=== PATIENT | male | born 1970 | race Caucasian/White ===

== ENCOUNTER 2016-09-30 15:55 | Inpatient (IN) | payer OTHER ==
--- NOTE | 2016-09-30 16:31 | ED ---
General Adult HPI - General Chief complaint: Recheck/Abnormal Lab/Rx Stated complaint: abnormal labs Time Seen by Provider: 09/30/16 16:00 Source: patient, RN notes reviewed Mode of arrival: ambulatory Limitations: no limitations - History of Present Illness Initial comments: This is a 45-year-old male who presents emergency department because he was told to come in because he had abnormal labs. Patient states she's never daily drinker and has been for at least 10 years. Patient's sister states he is very yellow looking. Patient states he is not having any symptoms he denies any chest pain difficulty breathing or shortness of breath. Patient denies any palpitations. Patient denies abdominal pain patient denies nausea vomiting or diarrhea. Patient states he does notice states more yellow in color than he normally is. Patient denies any headache patient denies numbness weakness. Patient denies lightheadedness dizziness or near syncopal episode. Patient states he does have a little bit of swelling in his legs but he has had that for quite a while. Patient states he has had at least 8 or 9 shots of liquor today. - Related Data Home Medications Medication Instructions Recorded Confirmed ALPRAZolam 1 mg PO BID PRN 10/03/14 12/05/15 Levothyroxine Sodium [Synthroid] 0.88 mcg PO DAILY 10/03/14 12/05/15 Lisinopril [Prinivil] 10 mg PO DAILY 10/03/14 12/05/15 Previous Rx's Medication Instructions Recorded Acetaminophen-Codeine 300-30mg 1 tab PO Q4H PRN #20 tablet 12/05/15 [Tylenol #3] Ibuprofen [Motrin] 600 mg PO Q8HR PRN #30 tab 12/05/15 Allergies Allergy/AdvReac Type Severity Reaction Status Date / Time No Known Allergies Allergy Verified 09/30/16 16:05 Review of Systems ROS Statement: Those systems with pertinent positive or pertinent negative responses have been documented in the HPI. ROS Other: All systems not noted in ROS Statement are negative. Past Medical History Past Medical History: Hypertension, Thyroid Disorder Additional Past Medical History / Comment(s): fatty liver disease History of Any Multi-Drug Resistant Organisms: None Reported Past Surgical History: No Surgical Hx Reported Past Psychological History: Anxiety, Panic Disorder Smoking Status: Never smoker Past Alcohol Use History: Daily, Heavy Past Drug Use History: Marijuana General Exam - General Exam Comments Initial Comments: GENERAL: Patient is well-developed and well-nourished. Patient is nontoxic and well- hydrated and is in mild distress. Patient is alert and oriented 3 but he seems very fatigued. ENT: Neck is soft and supple. No significant lymphadenopathy is noted. Oropharynx is clear. Moist mucous membranes. Neck has full range of motion without eliciting any pain. EYES: Patient has sclera icterus. Extraocular movements were intact and pupils were equal round and reactive to light. Eyelids were unremarkable. PULMONARY: Unlabored respirations. Good breath sounds bilaterally. No audible rales rhonchi or wheezing was noted. CARDIOVASCULAR: There is a regular rate and rhythm without any murmurs gallops or rubs. ABDOMEN: Soft and nontender with normal bowel sounds. No palpable organomegaly was noted. There is no palpable pulsatile mass. SKIN: Patient's skin is jaundice NEUROLOGIC: Patient is alert and oriented x3. Cranial nerves II through XII are grossly intact. Motor and sensory are also intact. Normal speech, volume and content. Symmetrical smile. MUSCULOSKELETAL: Normal extremities with adequate strength and full range of motion. Patient has 1+ edema bilaterally LYMPHATICS: No significant lymphadenopathy is noted PSYCHIATRIC: Normal psychiatric evaluation. Normal interpersonal interactions appears functionally intact in deals appropriately with others. No signs of depression. No signs of anxiety. Limitations: no limitations Course Vital Signs 09/30/16 16:00 Temperature 97.8 F Pulse Rate 99 Respiratory 20 Rate Blood Pressure 115/57 O2 Sat by Pulse 98 Oximetry Medical Decision Making - Medical Decision Making EKG shows normal sinus rhythm at 96 bpm AR interval 154 QRS is 112 QT interval 304 QTC is 485. Patient's EKG shows no ST segment elevation or depression or T- wave abdomen is noted - Lab Data Result diagrams: 09/30/16 16:43 09/30/16 16:43 Lab Results 09/30/16 09/30/16 09/30/16 Range/Units 16:43 16:43 16:43 WBC 10.2 (3.8-10.6) k/uL RBC 2.44 L (4.30-5.90) m/uL Hgb 10.0 L (13.0-17.5) gm/dL Hct 29.2 L (39.0-53.0) % MCV 119.4 H (80.0-100.0) fL MCH 41.0 H (25.0-35.0) pg MCHC 34.3 (31.0-37.0) g/dL RDW 13.0 (11.5-15.5) % Plt Count 225 (150-450) k/uL Neutrophils % 81 % Lymphocytes % 8 % Monocytes % 6 % Eosinophils % 2 % Basophils % 1 % Neutrophils # 8.2 H (1.3-7.7) k/uL Lymphocytes # 0.9 L (1.0-4.8) k/uL Monocytes # 0.6 (0-1.0) k/uL Eosinophils # 0.2 (0-0.7) k/uL Basophils # 0.1 (0-0.2) k/uL Macrocytosis Marked Sodium 125 L (137-145) mmol/L Potassium 4.3 (3.5-5.1) mmol/L Chloride 91 L (98-107) mmol/L Carbon Dioxide 20 L (22-30) mmol/L Anion Gap 14 mmol/L BUN 9 (9-20) mg/dL Creatinine 0.69 (0.66-1.25) mg/dL Est GFR (MDRD) Af Amer >60 (>60 ml/min/1.73 sqM) Est GFR (MDRD) Non-Af >60 (>60 ml/min/1.73 sqM) Glucose 92 (74-99) mg/dL Calcium 8.6 (8.4-10.2) mg/dL Magnesium 1.9 (1.6-2.3) mg/dL Total Bilirubin 19.4 H* (0.2-1.3) mg/dL AST 262 H (17-59) U/L ALT 94 H (21-72) U/L Alkaline Phosphatase 302 H (38-126) U/L Ammonia 15 (<30) umol/L Total Protein 8.0 (6.3-8.2) g/dL Albumin 3.1 L (3.5-5.0) g/dL Serum Alcohol 148 mg/dL Disposition Clinical Impression: Alcoholic hepatitis, Alcohol intoxication, Hyponatremia Disposition: ADMITTED IP TO THIS [facility] Time of Disposition: 17:54
[2016-09-30 16:59] LABS: Basophils # (A) 0.1 k/uL (0-0.2); Basophils % (A) 1 %; CH 39.7; CHCM 33.4; Eosinophils # (A) 0.2 k/uL (0-0.7); Eosinophils % (A) 2 %; HCT 29.2 % (39.0-53.0); HDW 1.73; Luc # (Auto) 0.19; Luc % (Auto) 2; Lymphocytes # (A) 0.9 k/uL (1.0-4.8); Lymphocytes % (A) 8 %; MCHC 34.3 g/dL (31.0-37.0); MCV 119.4 fL (80.0-100.0); Macrocytosis Marked; Mean Platelet Volume 7.5; Monocytes # (A) 0.6 k/uL (0-1.0); Monocytes % (A) 6 %; Neutrophils # (A) 8.2 k/uL (1.3-7.7); Neutrophils % (A) 81 %; RBC 2.44 m/uL (4.30-5.90); WBC 10.2 k/uL (3.8-10.6); WBC (Perox) 10.48
[2016-09-30 17:04] LABS: ALT 94 U/L (21-72); AST 262 U/L (17-59); Alkaline Phosphatase 302 U/L (38-126); Anion Gap 14 mmol/L; Blood Urea Nitrogen 9 mg/dL (9-20); Calcium 8.6 mg/dL (8.4-10.2); Carbon Dioxide 20 mmol/L (22-30); Chloride 91 mmol/L (98-107); Glucose 92 mg/dL (74-99); Magnesium 1.9 mg/dL (1.6-2.3); Non-African American GFR(MDRD) >60 (>60 ml/min/1.73 sqM); Potassium 4.3 mmol/L (3.5-5.1); Sodium 125 mmol/L (137-145)
[2016-09-30 17:11] LABS: Total Bilirubin 19.4 mg/dL (0.2-1.3)
[2016-09-30 17:12] LABS: Alcohol 148 mg/dL
[2016-09-30] MEDS ORDERED: SODIUM CHLORIDE 0.9% 1,000 ML IV ONE (17:54)
[2016-09-30] MEDS ORDERED: LORazepam 2 MG/ML SYRINGE IV PRN ×2 (17:56)
[2016-09-30] MEDS ORDERED: THIAMINE 100 MG/ML 2 ML VIAL IM STA (17:56)
[2016-09-30 18:42] LABS: Appearance,Urine Clear (Clear); Bilirubin,Urine 4+ (Negative); Glucose,Urine (UA) Negative (Negative); Ketones,Urine Negative (Negative); Leukocyte Esterase,Urine Negative (Negative); Nitrite,Urine Negative (Negative); Protein,Urine Negative (Negative); Specific Gravity,Urine 1.009 (1.001-1.035); UA Billing (MACRO vs. MICRO) CHEM
[2016-09-30] MEDS: THIAMINE 100 MG TAB PO SCH (20:29)
[2016-09-30 22:29] VITALS: BMI 34.4
[2016-10-01] MEDS: LORazepam 2 MG/ML SYRINGE IV PRN ×2 (09:50→16:53)
[2016-10-01] MEDS: THIAMINE 100 MG TAB PO SCH ×2 (12:12→16:53)
[2016-10-01] MEDS: SODIUM CHLORIDE 0.9% 1,000 ML IV SCH (12:13)
[2016-10-01] MEDS ORDERED: LEVOTHYROXINE 88 MCG TAB PO SCH (12:15)
[2016-10-01 13:38] LABS: INR 1.4 (<1.1); Prothrombin Time 13.6 sec (9.0-12.0)
[2016-10-01 14:04] LABS: Hepatitis B Surface Ag Index 0.08
[2016-10-01 14:09] LABS: Hepatitis B Core IgM Index 0.09
[2016-10-01 14:21] LABS: Hepatitis C Virus IgG Index 0.07
[2016-10-01 14:26] LABS: Hepatitis C Virus IgG Ab Negative (Negative)
--- NOTE | 2016-10-01 14:28 | US ---
EXAMINATION TYPE: US abdomen limited DATE OF EXAM: 10/01/2016 1:46 PM COMPARISON: 04/01/2014 CLINICAL HISTORY: Evaluate for ascites, alcoholic hepatitis, etoh abuse. TECHNOLOGIST IMPRESSION: Ascites seen in all four quadrants of the abdomen IMPRESSION: The exam is limited and demonstrates moderate amount of ascites fluid in all 4 quadrants of the abdomen.
[2016-10-01] MEDS: LEVOTHYROXINE 88 MCG TAB PO SCH (15:10)
[2016-10-01] MEDS: LISINOPRIL 20 MG TAB PO SCH (15:10)
[2016-10-01] MEDS ORDERED: HYDROmorphone 1 MG/ML 1 ML SYRINGE IVP PRN (15:57)
--- NOTE | 2016-10-01 16:50 | CONS ---
DATE OF CONSULTATION: 10/01/2016 REQUESTING PHYSICIAN: Dr. Thompson. REASON FOR CONSULTATION: Abdominal pain, abdominal distention and abnormal labs. The patient has history of alcohol use for the last 15 to 20 years' duration. Apparently he was noticed that his skin was turning yellow by his sister. He went to see Dr. Thompson on an outpatient basis, had some labs done and was told LFTs were abnormal and was advised to go to the emergency room. The patient has some abdominal distention and some vague abdominal discomfort. He denies any nausea, vomiting. Denies any rectal bleeding or melena. He denies any recent weight loss. His past medical history is significant for hypertension, hypothyroidism, and heavy alcohol abuse. PAST SURGICAL HISTORY: None. MEDICATIONS AT HOME: 1. Tylenol #3. 2. Motrin. 3. Prinivil. 4. Xanax. 5. Synthroid. ALLERGIES: None. SOCIAL HISTORY: Chronic smoker and heavy alcohol use for more than 20 years. FAMILY HISTORY: Unremarkable. REVIEW OF SYSTEMS: CARDIOPULMONARY: No chest pain or shortness of breath. GENITOURINARY: No dysuria or hematuria. MUSCULOSKELETAL: Unremarkable. SKIN: Unremarkable. ENDOCRINE: Unremarkable. PSYCHIATRIC: Unremarkable. NEUROLOGY: Unremarkable. ENT/VISION: Unremarkable. CONSTITUTIONAL: No recent weight loss. No fevers, chills or night sweats. On physical examination, he appears comfortable in no apparent distress. Vital signs are stable. Blood pressure is 103/59, pulse rate 97, temperature 98.2. HEENT: Unremarkable. Conjunctivae pink. Sclerae anicteric. Oral cavity, no lesions. NECK: No JVD or lymph node enlargement. CHEST: Clear to auscultation. HEART: Regular rate and rhythm. ABDOMEN: Soft. The liver was ballotable. There was some ascites noted in the abdomen. EXTREMITIES: 1+ pedal edema. SKIN: No rashes. NEURO: He is alert and oriented x3. No focal deficits. Labs from today: WBC 10.2, hemoglobin 10, platelets 225, T-bili is 19.4, AST 262 and ALT is 94, alk phos 302, basic metabolic panel is within normal limits. BUN and creatinine are within normal limits. Serum alcohol 148. IMPRESSION: 1. This is a patient with a history of heavy alcohol abuse of more than 20 years presents to the hospital with abdominal distention, yellowish discoloration of skin and labs show a significant elevation of total bilirubin of 19.4 and biochemical parameters consistent with acute alcoholic hepatitis superimposed on possible underlying alcoholic cirrhosis of the liver. 2. Mild ascites. RECOMMENDATIONS: 1. We will obtain ultrasound of the abdomen to see if he had significant ascites. 2. Obtain hepatitis viral profile. 3. After a lengthy discussion with the patient regarding abstinence from alcohol. 4. Continue with symptomatic and supportive care. 5. Low salt diet and will follow the patient closely during his hospital stay. Thank you for this consultation.
[2016-10-01] MEDS: PANTOPRAZOLE 40 MG/10 ML VIAL IVP SCH (16:52)
--- NOTE | 2016-10-01 19:03 | HP ---
DATE OF ADMISSION: CHIEF COMPLAINT: Abdominal distention as well as abnormal labs. HISTORY OF PRESENT ILLNESS: This 45-year-old gentleman with a past medical history of multiple medical problems including hypertension, hypothyroidism, history of fatty liver disease, anxiety, panic disorder, history of significant alcohol intake and history of THC being followed by Dr. Thompson in the outpatient setting was not feeling well for the past several days. The patient was drinking for the last 10 years at least. The patient was getting progressively yellow and Dr. Thompson recommended lab evaluation. Because of abnormal labs, the patient came to [facility] Emergency Room and was admitted for further evaluation and treatment. There is no history of any fever, rigors. No history of headache, loss of consciousness. The patient had some abdominal distention. The labs on admission showed hemoglobin 10, MCV 119, sodium is 125, bilirubin is elevated at 19.8 indicating acute alcoholic hepatitis, INR 1.4. AST and ALT were also elevated and patient admitted for further evaluation and treatment. Hepatitis panel was negative. Serum alcohol was 148 on admission. PAST MEDICAL HISTORY: History of significant EtOH. History of hypothyroidism, history of fatty liver disease, anxiety, panic disorder. Medications prior to admission include: 1. Synthroid 88 mcg p.o. daily. 2. Zestril 20 mg. 3. Xanax 1 mg b.i.d. p.r.n. ALLERGIES are none. FAMILY HISTORY: History of cancer, CVA, TIA, kidney cancer in the family. SOCIAL HISTORY: History of alcohol, THC. No history of smoking. REVIEW OF SYSTEMS: ENT: No diminished hearing or vision. CARDIOVASCULAR: No angina or palpitations. RESPIRATORY: No cough or hemoptysis. GI: No nausea. : No dysuria. NERVOUS SYSTEM: No numbness or weakness. ALLERGY/IMMUNOLOGY: No asthma or hayfever. MUSCULOSKELETAL: As mentioned earlier. HEMATOLOGY/ONCOLOGY: No history of anemia. ENDOCRINE: Hypothyroidism. CONSTITUTIONAL: As mentioned earlier. DERMATOLOGY: Negative. RHEUMATOLOGY: Negative. PSYCHIATRY: As mentioned earlier. PHYSICAL EXAMINATION: Alert and oriented x3. Pulse is 105, blood pressure 125/89, respirations 18, temperature 98 degrees, pulse 100% on room air. HEENT: Conjunctivae icteric. Oral mucosa icteric. NECK: No jugular venous distention. No carotid bruit. No lymph node enlargement. CARDIOVASCULAR: S1 and S2, muffled. No S3, no S4. RESPIRATORY: Breath sounds diminished at the bases. A few scattered rhonchi and crackles. ABDOMEN: Soft, mild diffuse distention. Flanks are dull. No mass palpable. No hepatosplenomegaly. Bowel sounds present. No guarding, no rigidity. LEGS: Minimal bilateral leg edema. NERVOUS SYSTEM: Higher function as mentioned. Moves all four limbs. No focal motor deficits. LYMPHATIC: No lymphadenopathy in the neck, axillae or groin. SKIN: Icteric. JOINTS: No active deforming arthropathy. LABS: WBC 10, hemoglobin 10, MCV ntd, sodium 125, LFTs are noted, albumin of 3.1, INR is 1.4. Abdominal ultrasound was done, which showed moderate amount of ascites. ASSESSMENT: 1. Acute alcoholic hepatitis with hyperbilirubinemia. 2. Ascites, possibly secondary to chronic liver disease. 3. Anemia, macrocytic, secondary to alcohol. 4. Mild coagulopathy secondary to chronic liver distress. 5. Hyponatremia secondary to alcohol. 6. Increased AST, ALT secondary to alcoholic hepatitis. 7. Increased alkaline phosphatase. 8. Hypoalbuminemia with mild to moderate protein calorie malnutrition. 9. Hypertension. 10. Hypothyroidism. 11. History of fatty liver. 12. History of anxiety, panic disorder. 13. History of tetrahydrocannabinol. 14. FULL CODE. RECOMMENDATIONS AND DISCUSSION: In this 45-year-old gentleman presented with multiple complex medical issues. Will monitor the patient closely. Continue the current medications. Continue symptomatic treatment. Avoid hepatotoxic medications. Ativan p.r.n. for alcohol withdrawal. Gastroenterology consultation. Proton pump inhibitors. Guarded prognosis. Repeat labs. Guarded prognosis because of multiple complex medical issues. Further recommendations to follow. Copy of dictation forwarded to Dr. Thompson who is the primary physician. I would also recommend a therapeutic ascitic tap also with radiology. JENNIFERD
[2016-10-01] MEDS: MELATONIN 3 MG TABLET PO SCH (22:36)
[2016-10-02] MEDS: LORazepam 2 MG/ML SYRINGE IV PRN (00:44)
[2016-10-02] MEDS: LEVOTHYROXINE 88 MCG TAB PO SCH (06:37)
[2016-10-02 08:34] LABS: Basophils # (A) 0.1 k/uL (0-0.2); Basophils % (A) 1 %; CH 39.7; CHCM 32.7; Eosinophils # (A) 0.2 k/uL (0-0.7); Eosinophils % (A) 2 %; HCT 29.2 % (39.0-53.0); HDW 1.71; HGB 9.9 gm/dL (13.0-17.5); Luc # (Auto) 0.17; Luc % (Auto) 2; Lymphocytes # (A) 0.6 k/uL (1.0-4.8); Lymphocytes % (A) 7 %; MCH 41.5 pg (25.0-35.0); Macrocytosis Marked; Mean Platelet Volume 7.2; Monocytes # (A) 0.5 k/uL (0-1.0); Monocytes % (A) 6 %; Neutrophils # (A) 7.5 k/uL (1.3-7.7); Neutrophils % (A) 83 %; RDW 13.1 % (11.5-15.5); WBC (Perox) 9.18
[2016-10-02 08:55] LABS: ALT 91 U/L (21-72); AST 237 U/L (17-59); Alkaline Phosphatase 285 U/L (38-126); Amylase 80 U/L (30-110); Anion Gap 11 mmol/L; Blood Urea Nitrogen 8 mg/dL (9-20); Calcium 8.9 mg/dL (8.4-10.2); Carbon Dioxide 20 mmol/L (22-30); Chloride 99 mmol/L (98-107); Glucose 98 mg/dL (74-99); Non-African American GFR(MDRD) >60 (>60 ml/min/1.73 sqM); Sodium 130 mmol/L (137-145); Total Protein 7.8 g/dL (6.3-8.2)
[2016-10-02] MEDS: LISINOPRIL 20 MG TAB PO SCH (08:58)
[2016-10-02] MEDS: PANTOPRAZOLE 40 MG/10 ML VIAL IVP SCH (08:58)
[2016-10-02] MEDS: ALPRAZolam 0.5 MG TAB PO PRN ×2 (08:58→22:24)
[2016-10-02 09:05] LABS: Total Bilirubin 21.3 mg/dL (0.2-1.3)
[2016-10-02 11:10] LABS: Manual Review Performed; Toxic Granulation Present
[2016-10-02] MEDS: FUROSEMIDE 40 MG TAB PO SCH (13:41)
[2016-10-02] MEDS: SPIRONOLACTONE 25 MG TAB PO SCH (13:41)
[2016-10-02] MEDS: THIAMINE 100 MG TAB PO SCH ×2 (13:42→17:33)
[2016-10-02] MEDS: FOLIC ACID 1 MG TAB PO SCH (13:42)
[2016-10-02] MEDS: MULTIVITAMINS, THERA 1 EACH TAB PO SCH (13:42)
[2016-10-02] MEDS: SODIUM CHLORIDE 0.9% 1,000 ML IV SCH (13:43)
--- NOTE | 2016-10-02 19:26 | P.PN ---
Subjective Date of service 10/02/2016 Progress note being dictated for Dr. Rodriguez Interval history: This is a 45-year-old gentleman admitted with acute alcoholic hepatitis, ascites and multiple other medical issues in a patient with extensive history of heavy ongoing daily alcohol abuse. Maintained onCIWA protocol. Awaiting paracentesis .Lipase 1468, LFTs trending down, total bili 21.3. Hepatitis panel negative. Platelets 242, hemoglobin 9.9. 4+ bilirubin in urine. Afebrile with normal WBC. Mild tachycardia. Denies chest pain, palpitations or increasing shortness of breath. Complains of diffuse abdominal discomfort. No nausea, no vomiting. Objective - Vital Signs Vital signs: Vital Signs Temp 98.1 F 10/02/16 07:00 Pulse 94 10/02/16 07:00 Resp 22 10/02/16 07:00 BP 116/55 10/02/16 07:00 Pulse Ox 100 10/02/16 07:00 Intake & Output 10/01/16 10/02/16 10/02/16 18:59 06:59 18:59 Intake Total 240 120 Balance 240 120 Weight 128.367 kg Intake: IV 240 Sodium Chloride 0.9% 1, 240 000 ml @ 20 mls/hr IV . Q24H [facility] Rx#:[id number] Oral 120 Other: Voiding Method Toilet Toilet # Voids 6 3 - Exam PHYSICAL EXAM: VITAL SIGNS: As above GENERAL: Sitting up in bed, a & O 3, no acute distress HEENT: [Pupils equal conjunctiva icterus] NECK: [Supple, no JVD] RESPIRATORY EFFORT:[Normal] LUNGS: [Bilateral bases diminished with scattered rhonchi and crackles] CARDIOVASCULAR[regular S1 and S2, no S3, no S4, tachycardic, positive edema GI: [Abdomen soft, distended, positive ascites, dull flanks, mild diffuse tenderness, positive bowel sounds. No guarding, no rigidity] PSYCH: [Alert and oriented -3, mood and affect normal.] SKIN: [Jaundiced] NEURO: No focal deficits, moves all 4 extremities - Labs CBC & Chem 7: 10/02/16 08:12 10/02/16 08:12 Labs: Abnormal Lab Results - Last 24 Hours (Table) 10/01/16 10/02/16 10/02/16 Range/Units 12:57 08:12 08:12 RBC 2.40 L (4.30-5.90) m/uL Hgb 9.9 L (13.0-17.5) gm/dL Hct 29.2 L (39.0-53.0) % MCV 122.0 H (80.0-100.0) fL MCH 41.5 H (25.0-35.0) pg Lymphocytes # 0.6 L (1.0-4.8) k/uL PT 13.6 H (9.0-12.0) sec Sodium 130 L (137-145) mmol/L Carbon Dioxide 20 L (22-30) mmol/L BUN 8 L (9-20) mg/dL Creatinine 0.60 L (0.66-1.25) mg/dL Total Bilirubin 21.3 H* (0.2-1.3) mg/dL AST 237 H (17-59) U/L ALT 91 H (21-72) U/L Alkaline Phosphatase 285 H (38-126) U/L Albumin 3.0 L (3.5-5.0) g/dL Lipase 1468 H (23-300) U/L Assessment and Plan Plan: 1. Acute alcoholic hepatitis with hyperbilirubinemia. 2. Moderate Ascites possibly secondary to chronic liver disease. 3. Anemia, macrocytic secondary to alcohol. 4. Mild coagulopathy secondary to chronic liver disease. 5. Hyponatremia secondary to alcohol. 6. Elevated LFTs secondary to alcoholic hepatitis. 7. Increased alk phosphatase. 8. Hypoalbuminemia with mild to moderate protein calorie malnutrition 9. Hypertension 10. Hypothyroidism 11. History of fatty liver 12. Anxiety, panic disorder, history of 13. History of THC 14. Ongoing daily alcohol abuse. Plan: Continue on current medication regime, Aldactone, Lasix monitoring and symptomatic treatment. Daily PT/INR. Maintain CIWA protocol and low salt diet. GI prophylaxis in place with PPI. Scheduled for paracentesis tomorrow. Increase ambulation as tolerated. Alcohol cessation readdressed. DF around 29 in regards to corticosteroid therapy for alcoholic hepatitis-defer to GI. Further recommendations to follow. Prognosis guarded The impression and plan of care has been dictated as directed. : I performed a H&P examination of this patient and discussed the same with the dictator. I agree with the dictator's note. Any additional findings/opinions/ etc. will be noted.
--- NOTE | 2016-10-02 19:28 | PN ---
DATE OF SERVICE: 10/02/2016 Patient is a 45-year-old pleasant white male admitted to the hospital with jaundice, abdominal distention for the last 2 weeks' duration. He denies any abdominal pain. He reports no nausea or vomiting. He did have an ultrasound of the abdomen done yesterday that showed evidence of moderate ascites. On physical examination, he appears comfortable in no apparent distress. Vitals as are stable. Blood pressure is 136/77, pulse 105, temperature 97, ( ). HEENT: Examination unremarkable. Conjunctivae pink. Sclerae anicteric. Oral cavity, no lesions. NECK: No JVD or lymph node enlargement. Chest was clear to auscultation. HEART: Regular rate and rhythm. ABDOMEN: Soft. Bowel sounds are positive. It was distended. EXTREMITIES: 1+ pedal edema. SKIN: No rashes. NEURO: Alert and oriented x3 and no focal deficits. Labs done from today showed slightly elevated lipase at 1468. T-bili is 21.3, AST 277, ALT is 91 and alkaline phosphatase 285. WBC 9, hemoglobin 9.9, platelets are 242, ultrasound showed moderate ascites. IMPRESSION: 1. Alcoholic cirrhosis with acute alcoholic hepatitis. 2. Ascites related to cirrhosis and portal hypertension. 3. Macrocytic anemia related to heavy alcohol abuse. 4. History of heavy alcohol abuse. RECOMMENDATIONS: 1. Will start him on Lasix 40 mg daily and Aldactone 100 mg daily. 2. Low-salt diet. 3. I had a lengthy discussion with the patient regarding abstinence from alcohol. 4. Await hepatitis serologies and will follow the patient closely during his hospital stay. Thank you for this consultation.
[2016-10-02] MEDS: MELATONIN 3 MG TABLET PO SCH (20:34)
[2016-10-02] MEDS: DOCUSATE 100 MG CAP PO SCH (20:35)
[2016-10-03] MEDS: LEVOTHYROXINE 88 MCG TAB PO SCH (06:37)
[2016-10-03] MEDS: DOCUSATE 100 MG CAP PO SCH ×3 (08:05→20:37)
[2016-10-03] MEDS: PANTOPRAZOLE 40 MG TABLET PO SCH (08:05)
[2016-10-03] MEDS: FUROSEMIDE 40 MG TAB PO SCH (08:06)
[2016-10-03] MEDS: SPIRONOLACTONE 25 MG TAB PO SCH (08:06)
[2016-10-03] MEDS: LISINOPRIL 20 MG TAB PO SCH (08:06)
[2016-10-03 09:29] LABS: INR 1.5 (<1.1)
[2016-10-03 09:32] LABS: Basophils # (A) 0.1 k/uL (0-0.2); Basophils % (A) 1 %; CH 39.2; CHCM 31.8; Eosinophils # (A) 0.2 k/uL (0-0.7); Eosinophils % (A) 2 %; HCT 30.5 % (39.0-53.0); HDW 1.73; Luc # (Auto) 0.18; Luc % (Auto) 2; Lymphocytes # (A) 0.9 k/uL (1.0-4.8); Lymphocytes % (A) 9 %; MCH 40.6 pg (25.0-35.0); MCHC 32.8 g/dL (31.0-37.0); MCV 123.8 fL (80.0-100.0); Macrocytosis Marked; Mean Platelet Volume 7.5; Monocytes # (A) 0.5 k/uL (0-1.0); Monocytes % (A) 5 %; Neutrophils # (A) 8.1 k/uL (1.3-7.7); Neutrophils % (A) 81 %; RBC 2.47 m/uL (4.30-5.90); RDW 13.2 % (11.5-15.5); WBC (Perox) 10.28
[2016-10-03 09:50] LABS: ALT 93 U/L (21-72); AST 224 U/L (17-59); Alkaline Phosphatase 280 U/L (38-126); Anion Gap 14 mmol/L; Blood Urea Nitrogen 9 mg/dL (9-20); Calcium 8.9 mg/dL (8.4-10.2); Carbon Dioxide 23 mmol/L (22-30); Chloride 98 mmol/L (98-107); Glucose 96 mg/dL (74-99); Non-African American GFR(MDRD) >60 (>60 ml/min/1.73 sqM); Potassium 3.9 mmol/L (3.5-5.1); Sodium 135 mmol/L (137-145); Total Protein 8.3 g/dL (6.3-8.2)
--- NOTE | 2016-10-03 10:00 | PN ---
DATE OF SERVICE: 10/02/2016 This 45-year-old gentleman was admitted with significant alcoholic hepatitis has been closely monitored. The patient's is less than 32 at this time. Patient also had PAST MEDICAL HISTORY: Reviewed. Seen and evaluated the patient along with the nurse practitioner. Please refer to the nurse practitioner notes and impression documented for further information. Otherwise current medications are: 1. Xanax 1 mg b.i.d. p.r.n. 2. Colace 100 mg daily. 3. Folic acid. 4. Lasix. 5. Dilaudid. 6. Synthroid. 7. Zestril. 8. Ativan. 9. Melatonin. 10. Multivitamins. 11. Protonix. 12. Aldactone. 13. Vitamin B1. REVIEW OF SYSTEMS: CARDIOVASCULAR: No angina. RESPIRATORY: As mentioned earlier. GI: As mentioned earlier. : No dysuria. NERVOUS SYSTEM: ntd. RECOMMENDATIONS AND DISCUSSION: I recommend to continue the current medications, continue monitoring and symptomatic treatment. Otherwise, closely follow with Dr. Santamaria as mentioned earlier. No p.o. steroids at this time. Guarded prognosis. Further recommendations to follow. MTDD
[2016-10-03 10:03] LABS: Total Bilirubin 20.8 mg/dL (0.2-1.3)
[2016-10-03 11:50] LABS: Manual Review Performed
[2016-10-03] MEDS: THIAMINE 100 MG TAB PO SCH ×2 (12:01→16:42)
[2016-10-03] MEDS: FOLIC ACID 1 MG TAB PO SCH (12:02)
[2016-10-03] MEDS: SODIUM CHLORIDE 0.9% 1,000 ML IV SCH (12:02)
[2016-10-03] MEDS: MULTIVITAMINS, THERA 1 EACH TAB PO SCH (12:02)
--- NOTE | 2016-10-03 12:58 | US ---
EXAMINATION TYPE: US paracentesis abd w/image DATE OF EXAM: 10/03/2016 11:08 AM CLINICAL HISTORY: Ascites The procedure was discussed with the patient. The risks, complications, benefits, and alternatives we re discussed and any questions were answered. Informed consent was obtained. The patient was placed s upine on the ultrasound table and prepped and draped in the usual sterile fashion. All elements of maximal barrier technique were utilized. Under ultrasound guidance, access into the right lower quadrant was obtained, via the paracentesis catheter system and direct ultrasound guidanc e. Approximately 2.6 liters of straw-colored fluid was removed. The patient was stable throughout the pr ocedure and remained stable upon discharge from Department of Radiology. IMPRESSION: Successful therapeutic paracentesis under ultrasound guidance.
--- NOTE | 2016-10-03 13:58 | P.PN ---
Subjective Principal diagnosis: Alcohol hepatitis pancreatitis 45-year-old male admitted with acute alcohol hepatitis pancreatitis ascites status post paracentesis; 2.6 L removal. Total bilirubin 20.8. Repeat pancreatic enzymes not obtained today. Feels better. Afebrile. Hepatitis panel negative. Objective - Vital Signs Vital signs: Vital Signs Temp 99.3 F 10/03/16 10:16 Pulse 100 10/03/16 11:05 Resp 20 10/03/16 11:05 BP 120/60 10/03/16 11:05 Pulse Ox 99 10/03/16 11:05 Intake & Output 10/02/16 10/03/16 10/03/16 18:59 06:59 18:59 Intake Total 600 Output Total 250 Balance 600 -250 Weight 128.367 kg Intake: Oral 600 Output: Urine 250 Other: Voiding Method Toilet # Voids 1 1 # Bowel Movements 0 0 - Exam General appearance: The patient is alert, oriented, in no acute distress. Jaundice. HET: Head is normocephalic and atraumatic. Pupils are equal and reactive. Sclerae icterus. Oropharynx is clear without lesions. Neck: Supple without lymphadenopathy. Trachea midline. Heart: S1 S2. Regular rate and rhythm. Lungs: No crackles or wheezes are heard. Abdomen: Soft, obese with protuberant abdomen, with bowel sounds. No peritoneal signs. No palpable organomegaly or masses. Extremities: Normal skin color and turgor. No cyanosis, rash, ulceration, clubbing, or edema. Radial and pedal pulses are 2/4 bilaterally. Neurological: No focal deficits. Strength and sensation are grossly intact. - Labs CBC & Chem 7: 10/03/16 08:34 10/03/16 08:34 Labs: Abnormal Lab Results - Last 24 Hours (Table) 10/03/16 10/03/16 10/03/16 Range/Units 08:34 08:34 08:34 RBC 2.47 L (4.30-5.90) m/uL Hgb 10.0 L (13.0-17.5) gm/dL Hct 30.5 L (39.0-53.0) % MCV 123.8 H (80.0-100.0) fL MCH 40.6 H (25.0-35.0) pg Neutrophils # 8.1 H (1.3-7.7) k/uL Lymphocytes # 0.9 L (1.0-4.8) k/uL PT 15.0 H (9.0-12.0) sec Sodium 135 L (137-145) mmol/L Creatinine 0.65 L (0.66-1.25) mg/dL Total Bilirubin 20.8 H* (0.2-1.3) mg/dL AST 224 H (17-59) U/L ALT 93 H (21-72) U/L Alkaline Phosphatase 280 H (38-126) U/L Ammonia (<30) umol/L Total Protein 8.3 H (6.3-8.2) g/dL Albumin 3.1 L (3.5-5.0) g/dL 10/03/16 Range/Units 08:34 RBC (4.30-5.90) m/uL Hgb (13.0-17.5) gm/dL Hct (39.0-53.0) % MCV (80.0-100.0) fL MCH (25.0-35.0) pg Neutrophils # (1.3-7.7) k/uL Lymphocytes # (1.0-4.8) k/uL PT (9.0-12.0) sec Sodium (137-145) mmol/L Creatinine (0.66-1.25) mg/dL Total Bilirubin (0.2-1.3) mg/dL AST (17-59) U/L ALT (21-72) U/L Alkaline Phosphatase (38-126) U/L Ammonia 51 H (<30) umol/L Total Protein (6.3-8.2) g/dL Albumin (3.5-5.0) g/dL Assessment and Plan Plan: 1. Acute alcohol hepatitis and pancreatitis. 2. Ascites status post paracentesis. 3. Alcohol liver cirrhosis with portal hypertension. 4. EtOH abuse. I've. Macrocytic anemia secondary to heavy alcohol abuse. Plan: 1. Supportive measures. Alcohol abstinence reinforced. Continue Lasix/ Aldactone. Low-salt diet. We'll continue to follow.
[2016-10-03 15:03] LABS: RBC, Body Fluid 57 /uL
[2016-10-03 15:27] VITALS: RESP 16
[2016-10-03] MEDS: predniSONE 20 MG TAB PO SCH (16:42)
[2016-10-03] MEDS: MELATONIN 3 MG TABLET PO SCH (20:33)
[2016-10-03] MEDS: ALPRAZolam 0.5 MG TAB PO PRN (20:35)
--- NOTE | 2016-10-03 21:40 | PN ---
DATE OF SERVICE: 10/03/2016 This 45 -year-old gentleman admitted with acute hepatitis and secondary to alcoholic hepatitis, EF 35 today. The patient slightly worsened to PT and INR 15 and bilirubin 20.8. Seen and evaluated the patient along with nurse practitioner. Please refer to the nurse practitioner notes and impression documented as a scribe for further information. Past medical history reviewed. REVIEW OF SYSTEMS: CARDIOVASCULAR: S1, S2. RESPIRATORY: As mentioned earlier. GI: No nausea, vomiting. GENITOURINARY: No dysuria. CENTRAL NERVOUS SYSTEM: No numbness, weakness. Medications are reviewed and include: 1. Xanax daily p.o. b.i.d. 2. Colace 100 mg p.o. daily. 3. Folic acid. 4. Lasix. 5. Synthroid 18 mcg. 6. Zestril 20 mg daily p.r.n. 7. Melatonin. 8. Protonix. 9. Aldactone. 10. Vitamin B1. Recommendations and discussion: I would initiate the patient on prednisone 30 mg daily for 28 days. Otherwise, continue to monitor. Repeat labs. Closely follow with Dr. Santamaria. Guarded prognosis. Further recommendations to follow.
[2016-10-04] MEDS: LEVOTHYROXINE 88 MCG TAB PO SCH (06:27)
[2016-10-04] MEDS: LISINOPRIL 20 MG TAB PO SCH (08:10)
[2016-10-04] MEDS: DOCUSATE 100 MG CAP PO SCH ×2 (08:10→21:57)
[2016-10-04] MEDS: FUROSEMIDE 40 MG TAB PO SCH (08:10)
[2016-10-04] MEDS: SPIRONOLACTONE 25 MG TAB PO SCH (08:10)
[2016-10-04] MEDS: PANTOPRAZOLE 40 MG TABLET PO SCH (08:10)
[2016-10-04] MEDS: predniSONE 20 MG TAB PO SCH (08:10)
[2016-10-04 09:07] LABS: Basophils % (A) 0 %; CH 39.3; CHCM 31.9; Eosinophils # (A) 0.1 k/uL (0-0.7); Eosinophils % (A) 1 %; HCT 32.8 % (39.0-53.0); HDW 1.75; HGB 10.7 gm/dL (13.0-17.5); Luc # (Auto) 0.14; Luc % (Auto) 1; Lymphocytes # (A) 0.9 k/uL (1.0-4.8); Lymphocytes % (A) 8 %; MCH 40.2 pg (25.0-35.0); MCHC 32.5 g/dL (31.0-37.0); MCV 123.7 fL (80.0-100.0); Macrocytosis Marked; Mean Platelet Volume 7.2; Monocytes # (A) 0.5 k/uL (0-1.0); Monocytes % (A) 5 %; Neutrophils # (A) 10.1 k/uL (1.3-7.7); Neutrophils % (A) 86 %; RBC 2.65 m/uL (4.30-5.90); RDW 13.2 % (11.5-15.5); WBC 11.8 k/uL (3.8-10.6); WBC (Perox) 12.49
[2016-10-04 09:31] LABS: INR 1.6 (<1.1); Prothrombin Time 15.5 sec (9.0-12.0)
[2016-10-04 09:41] LABS: ALT 95 U/L (21-72); AST 217 U/L (17-59); Alkaline Phosphatase 271 U/L (38-126); Anion Gap 14 mmol/L; Blood Urea Nitrogen 11 mg/dL (9-20); Calcium 9.1 mg/dL (8.4-10.2); Carbon Dioxide 25 mmol/L (22-30); Chloride 99 mmol/L (98-107); Glucose 105 mg/dL (74-99); Non-African American GFR(MDRD) >60 (>60 ml/min/1.73 sqM); Potassium 4.2 mmol/L (3.5-5.1); Sodium 138 mmol/L (137-145); Total Protein 8.7 g/dL (6.3-8.2)
[2016-10-04 09:45] LABS: Total Bilirubin 18.8 mg/dL (0.2-1.3)
--- NOTE | 2016-10-04 10:32 | P.PN ---
Subjective Principal diagnosis: Alcohol hepatitis pancreatitis 45-year-old male admitted with acute alcohol hepatitis pancreatitis ascites status post paracentesis; 2.6 L removal. Total bilirubin decreased to 18.8 today. Repeat pancreatic enzymes not obtained today. Feels better. Afebrile. Hepatitis panel negative. Objective - Vital Signs Vital signs: Vital Signs Temp 97.9 F 10/04/16 06:20 Pulse 88 10/04/16 06:20 Resp 16 10/04/16 06:20 BP 101/55 10/04/16 06:20 Pulse Ox 99 10/04/16 06:20 Intake & Output 10/03/16 10/04/16 10/04/16 18:59 06:59 18:59 Intake Total 160 220 Balance 160 220 Intake: IV 160 220 Sodium Chloride 0.9% 1, 160 220 000 ml @ 20 mls/hr IV . Q24H ERIC Rx#:[id number] Other: Voiding Method Toilet # Voids 1 - Exam General appearance: The patient is alert, oriented, in no acute distress. Jaundice. HET: Head is normocephalic and atraumatic. Pupils are equal and reactive. Sclerae icterus. Oropharynx is clear without lesions. Neck: Supple without lymphadenopathy. Trachea midline. Heart: S1 S2. Regular rate and rhythm. Lungs: No crackles or wheezes are heard. Abdomen: Soft, obese with protuberant abdomen, with bowel sounds. No peritoneal signs. No palpable organomegaly or masses. Extremities: Normal skin color and turgor. No cyanosis, rash, ulceration, clubbing, or edema. Radial and pedal pulses are 2/4 bilaterally. Neurological: No focal deficits. Strength and sensation are grossly intact. - Labs CBC & Chem 7: 10/04/16 08:31 10/04/16 08:31 Labs: Abnormal Lab Results - Last 24 Hours (Table) 10/03/16 10/04/16 10/04/16 Range/Units 08:34 08:31 08:31 WBC 11.8 H (3.8-10.6) k/uL RBC 2.47 L 2.65 L (4.30-5.90) m/uL Hgb 10.0 L 10.7 L (13.0-17.5) gm/dL Hct 30.5 L 32.8 L (39.0-53.0) % MCV 123.8 H 123.7 H (80.0-100.0) fL MCH 40.6 H 40.2 H (25.0-35.0) pg Neutrophils # 8.1 H (1.3-7.7) k/uL Lymphocytes # 0.9 L (1.0-4.8) k/uL PT (9.0-12.0) sec Creatinine 0.65 L (0.66-1.25) mg/dL Glucose 105 H (74-99) mg/dL Total Bilirubin 18.8 H* (0.2-1.3) mg/dL AST 217 H (17-59) U/L ALT 95 H (21-72) U/L Alkaline Phosphatase 271 H (38-126) U/L Ammonia (<30) umol/L Total Protein 8.7 H (6.3-8.2) g/dL Albumin 3.2 L (3.5-5.0) g/dL 10/04/16 10/04/16 Range/Units 08:31 08:31 WBC (3.8-10.6) k/uL RBC (4.30-5.90) m/uL Hgb (13.0-17.5) gm/dL Hct (39.0-53.0) % MCV (80.0-100.0) fL MCH (25.0-35.0) pg Neutrophils # (1.3-7.7) k/uL Lymphocytes # (1.0-4.8) k/uL PT 15.5 H (9.0-12.0) sec Creatinine (0.66-1.25) mg/dL Glucose (74-99) mg/dL Total Bilirubin (0.2-1.3) mg/dL AST (17-59) U/L ALT (21-72) U/L Alkaline Phosphatase (38-126) U/L Ammonia 35 H (<30) umol/L Total Protein (6.3-8.2) g/dL Albumin (3.5-5.0) g/dL Assessment and Plan Plan: 1. Acute alcohol hepatitis and pancreatitis. 2. Ascites status post paracentesis. 3. Alcohol liver cirrhosis with portal hypertension. 4. EtOH abuse. 5. Macrocytic anemia secondary to heavy alcohol abuse. Plan: 1. Supportive measures. Alcohol abstinence reinforced. Continue Lasix/ Aldactone. Low-salt diet. RTO 2-3 weeks.
[2016-10-04 10:38] LABS: Manual Review Performed
[2016-10-04 10:40] LABS: Polychromasia Present; Target Cells Present
[2016-10-04 10:41] LABS: Toxic Granulation Present
[2016-10-04] MEDS: SODIUM CHLORIDE 0.9% 1,000 ML IV SCH (11:47)
[2016-10-04] MEDS: MULTIVITAMINS, THERA 1 EACH TAB PO SCH (11:48)
[2016-10-04] MEDS: THIAMINE 100 MG TAB PO SCH ×2 (11:48→16:46)
[2016-10-04] MEDS: FOLIC ACID 1 MG TAB PO SCH (11:48)
[2016-10-04] MEDS: MELATONIN 3 MG TABLET PO SCH (21:57)
[2016-10-04] MEDS: ALPRAZolam 0.5 MG TAB PO PRN (21:57)
[2016-10-04 23:59] VITALS: TEMP 97
[2016-10-05] MEDS: LEVOTHYROXINE 88 MCG TAB PO SCH (06:41)
[2016-10-05] MEDS: predniSONE 20 MG TAB PO SCH (08:05)
[2016-10-05] MEDS: DOCUSATE 100 MG CAP PO SCH (08:05)
[2016-10-05] MEDS: LISINOPRIL 20 MG TAB PO SCH (08:05)
[2016-10-05] MEDS: FUROSEMIDE 40 MG TAB PO SCH (08:06)
[2016-10-05] MEDS: SPIRONOLACTONE 25 MG TAB PO SCH (08:06)
[2016-10-05] MEDS: PANTOPRAZOLE 40 MG TABLET PO SCH (08:06)
[2016-10-05 09:00] LABS: INR 1.4 (<1.1); Prothrombin Time 14.1 sec (9.0-12.0)
[2016-10-05 09:20] LABS: ALT 101 U/L (21-72); AST 195 U/L (17-59); Alkaline Phosphatase 265 U/L (38-126); Anion Gap 12 mmol/L; Blood Urea Nitrogen 15 mg/dL (9-20); Calcium 9.1 mg/dL (8.4-10.2); Carbon Dioxide 26 mmol/L (22-30); Chloride 100 mmol/L (98-107); Glucose 84 mg/dL (74-99); Non-African American GFR(MDRD) >60 (>60 ml/min/1.73 sqM); Potassium 3.6 mmol/L (3.5-5.1); Sodium 138 mmol/L (137-145); Total Protein 8.4 g/dL (6.3-8.2)
[2016-10-05 09:28] LABS: Total Bilirubin 15.5 mg/dL (0.2-1.3)
[2016-10-05 09:42] LABS: Basophils % (A) 0 %; CH 39.4; CHCM 31.7; Eosinophils # (A) 0.2 k/uL (0-0.7); Eosinophils % (A) 1 %; HCT 33.6 % (39.0-53.0); HDW 1.73; HGB 11.1 gm/dL (13.0-17.5); Luc # (Auto) 0.14; Luc % (Auto) 1; Lymphocytes # (A) 1.5 k/uL (1.0-4.8); Lymphocytes % (A) 12 %; MCH 41.1 pg (25.0-35.0); MCV 124.6 fL (80.0-100.0); Macrocytosis Marked; Monocytes # (A) 0.6 k/uL (0-1.0); Monocytes % (A) 5 %; Neutrophils # (A) 10.2 k/uL (1.3-7.7); Neutrophils % (A) 81 %; RBC 2.69 m/uL (4.30-5.90); RDW 13.4 % (11.5-15.5); WBC 12.6 k/uL (3.8-10.6)
--- NOTE | 2016-10-05 10:47 | P.PN ---
Subjective Date of service 10/03/2016 Progress note being dictated for Dr. Rodriguez Interval history: This is a 45-year-old gentleman admitted with acute alcoholic hepatitis, ascites and multiple other medical issues in a patient with extensive history of heavy ongoing daily alcohol abuse. Maintained onCIWA protocol. Underwent Paracentesis today with 2.6 L of straw-colored fluid drained. Tolerated procedure well . Total bili trending down, 20.8. Afebrile with normal WBC. Denies chest pain, palpitations or increasing shortness of breath. Objective - Vital Signs Vital signs: Vital Signs Temp 98.4 F 10/03/16 14:22 Pulse 96 10/03/16 14:22 Resp 16 10/03/16 14:22 BP 110/62 10/03/16 14:22 Pulse Ox 99 10/03/16 14:22 Intake & Output 10/03/16 10/03/16 10/04/16 06:59 18:59 06:59 Intake Total 160 Output Total 250 Balance -250 160 Intake: IV 160 Sodium Chloride 0.9% 1, 160 000 ml @ 20 mls/hr IV . Q24H ERIC Rx#:[id number] Output: Urine 250 Other: # Voids 1 # Bowel Movements 0 - Exam PHYSICAL EXAM: VITAL SIGNS: As above GENERAL: Sitting up in bed, a & O 3, no acute distress HEENT: [Pupils equal conjunctiva icterus] NECK: [Supple, no JVD] RESPIRATORY EFFORT:[Normal] LUNGS: [Bilateral bases diminished with scattered rhonchi, no crackles, no wheezing] CARDIOVASCULAR[regular S1 and S2, no S3, no S4, tachycardic, positive edema GI: [Abdomen soft, distended, positive bowel sounds. No guarding, no rigidity] PSYCH: [Alert and oriented -3, mood and affect normal.] SKIN: [Jaundiced] NEURO: No focal deficits, moves all 4 extremities - Labs CBC & Chem 7: 10/05/16 08:20 10/05/16 08:20 Labs: Abnormal Lab Results - Last 24 Hours (Table) 10/03/16 10/03/16 10/03/16 Range/Units 08:34 08:34 08:34 RBC 2.47 L (4.30-5.90) m/uL Hgb 10.0 L (13.0-17.5) gm/dL Hct 30.5 L (39.0-53.0) % MCV 123.8 H (80.0-100.0) fL MCH 40.6 H (25.0-35.0) pg Neutrophils # 8.1 H (1.3-7.7) k/uL Lymphocytes # 0.9 L (1.0-4.8) k/uL PT 15.0 H (9.0-12.0) sec Sodium 135 L (137-145) mmol/L Creatinine 0.65 L (0.66-1.25) mg/dL Total Bilirubin 20.8 H* (0.2-1.3) mg/dL AST 224 H (17-59) U/L ALT 93 H (21-72) U/L Alkaline Phosphatase 280 H (38-126) U/L Ammonia (<30) umol/L Total Protein 8.3 H (6.3-8.2) g/dL Albumin 3.1 L (3.5-5.0) g/dL 10/03/16 Range/Units 08:34 RBC (4.30-5.90) m/uL Hgb (13.0-17.5) gm/dL Hct (39.0-53.0) % MCV (80.0-100.0) fL MCH (25.0-35.0) pg Neutrophils # (1.3-7.7) k/uL Lymphocytes # (1.0-4.8) k/uL PT (9.0-12.0) sec Sodium (137-145) mmol/L Creatinine (0.66-1.25) mg/dL Total Bilirubin (0.2-1.3) mg/dL AST (17-59) U/L ALT (21-72) U/L Alkaline Phosphatase (38-126) U/L Ammonia 51 H (<30) umol/L Total Protein (6.3-8.2) g/dL Albumin (3.5-5.0) g/dL Assessment and Plan Plan: 1. Acute alcoholic hepatitis with hyperbilirubinemia. 2. Moderate Ascites possibly secondary to chronic liver disease. Status post paracentesis. 3. Anemia, macrocytic secondary to alcohol. 4. Mild coagulopathy secondary to chronic liver disease. 5. Hyponatremia secondary to alcohol. 6. Elevated LFTs secondary to alcoholic hepatitis. 7. Increased alk phosphatase. 8. Hypoalbuminemia with mild to moderate protein calorie malnutrition 9. Hypertension 10. Hypothyroidism 11. History of fatty liver 12. Anxiety, panic disorder, history of 13. History of THC 14. Ongoing daily alcohol abuse. Plan: Continue on current medication regime, Aldactone, Lasix, monitoring and symptomatic treatment. Maintain CIWA protocol and low salt diet. GI prophylaxis in place with PPI. Paracentesis cytology/ cultures pending. Increase ambulation as tolerated. Alcohol cessation readdressed. Prognosis guarded The impression and plan of care has been dictated as directed. : I performed a H&P examination of this patient and discussed the same with the dictator. I agree with the dictator's note. Any additional findings/opinions/ etc. will be noted.
--- NOTE | 2016-10-05 10:59 | P.PN ---
Subjective Date of service 10/04/2016 Progress note being dictated for Dr. Rodriguez Interval history: This is a 45-year-old gentleman admitted with acute alcoholic hepatitis, ascites, status post paracentesis and multiple other medical issues in a patient with alcohol abuse. Maintained onCIWA protocol. LFTs trending down. Total bili continues to improve, 18.8. No nausea or vomiting. Afebrile. Denies chest pain, palpitations or increasing shortness of breath. Objective - Vital Signs Vital signs: Vital Signs Temp 97.4 F L 10/04/16 15:00 Pulse 90 10/04/16 15:00 Resp 16 10/04/16 15:00 BP 111/67 10/04/16 15:00 Pulse Ox 98 10/04/16 15:00 Intake & Output 10/04/16 10/04/16 10/05/16 06:59 18:59 06:59 Intake Total 220 1160 Balance 220 1160 Intake: IV 220 160 Sodium Chloride 0.9% 1, 220 160 000 ml @ 20 mls/hr IV . Q24H ERIC Rx#:[id number] Oral 1000 Other: Voiding Method Toilet # Voids 1 1 - Exam PHYSICAL EXAM: VITAL SIGNS: As above GENERAL: Sitting up in bed, a & O 3, no acute distress HEENT: [Pupils equal conjunctiva icterus] NECK: [Supple, no JVD] RESPIRATORY EFFORT:[Normal] LUNGS: [Bilateral bases diminished with scattered rhonchi, no crackles, no wheezing] CARDIOVASCULAR[regular S1 and S2, no S3, no S4, tachycardic, positive edema GI: [Abdomen soft, distended, positive bowel sounds. No guarding, no rigidity] PSYCH: [Alert and oriented -3, mood and affect normal.] SKIN: [Jaundiced] NEURO: No focal deficits, moves all 4 extremities - Labs CBC & Chem 7: 10/05/16 08:20 10/05/16 08:20 Labs: Abnormal Lab Results - Last 24 Hours (Table) 10/04/16 10/04/16 10/04/16 Range/Units 08:31 08:31 08:31 WBC 11.8 H (3.8-10.6) k/uL RBC 2.65 L (4.30-5.90) m/uL Hgb 10.7 L (13.0-17.5) gm/dL Hct 32.8 L (39.0-53.0) % MCV 123.7 H (80.0-100.0) fL MCH 40.2 H (25.0-35.0) pg Neutrophils # 10.1 H (1.3-7.7) k/uL Lymphocytes # 0.9 L (1.0-4.8) k/uL PT 15.5 H (9.0-12.0) sec Creatinine 0.65 L (0.66-1.25) mg/dL Glucose 105 H (74-99) mg/dL Total Bilirubin 18.8 H* (0.2-1.3) mg/dL AST 217 H (17-59) U/L ALT 95 H (21-72) U/L Alkaline Phosphatase 271 H (38-126) U/L Ammonia (<30) umol/L Total Protein 8.7 H (6.3-8.2) g/dL Albumin 3.2 L (3.5-5.0) g/dL 10/04/16 Range/Units 08:31 WBC (3.8-10.6) k/uL RBC (4.30-5.90) m/uL Hgb (13.0-17.5) gm/dL Hct (39.0-53.0) % MCV (80.0-100.0) fL MCH (25.0-35.0) pg Neutrophils # (1.3-7.7) k/uL Lymphocytes # (1.0-4.8) k/uL PT (9.0-12.0) sec Creatinine (0.66-1.25) mg/dL Glucose (74-99) mg/dL Total Bilirubin (0.2-1.3) mg/dL AST (17-59) U/L ALT (21-72) U/L Alkaline Phosphatase (38-126) U/L Ammonia 35 H (<30) umol/L Total Protein (6.3-8.2) g/dL Albumin (3.5-5.0) g/dL Assessment and Plan Plan: 1. Acute alcoholic hepatitis with hyperbilirubinemia. 2. Moderate Ascites possibly secondary to chronic liver disease. Status post paracentesis. 3. Anemia, macrocytic secondary to alcohol. 4. Mild coagulopathy secondary to chronic liver disease. 5. Hyponatremia secondary to alcohol. 6. Elevated LFTs secondary to alcoholic hepatitis. 7. Increased alk phosphatase. 8. Hypoalbuminemia with mild to moderate protein calorie malnutrition 9. Hypertension 10. Hypothyroidism 11. History of fatty liver 12. Anxiety, panic disorder, history of 13. History of THC 14. Ongoing daily alcohol abuse. Plan: Continue on current medication regime, Aldactone, Lasix, monitoring and symptomatic treatment. Maintain CIWA protocol and low salt diet. Paracentesis cytology/ cultures pending. Continue Increasing ambulation as tolerated. Discharge planning in progress for tomorrow. Prognosis guarded. The impression and plan of care has been dictated as directed. : I performed a H&P examination of this patient and discussed the same with the dictator. I agree with the dictator's note. Any additional findings/opinions/ etc. will be noted.
[2016-10-05] MEDS: SODIUM CHLORIDE 0.9% 1,000 ML IV SCH (11:00)
[2016-10-05] MEDS: FOLIC ACID 1 MG TAB PO SCH (11:02)
[2016-10-05] MEDS: MULTIVITAMINS, THERA 1 EACH TAB PO SCH (11:02)
[2016-10-05] MEDS: THIAMINE 100 MG TAB PO SCH ×2 (11:02→16:38)
--- NOTE | 2016-10-05 11:38 | PN ---
DATE OF SERVICE: 10/04/2016 This 45-year-old gentleman admitted with acute alcoholic hepatitis, is being closely monitored at this time. The patient is on empiric steroids. Seen and evaluated the patient with the nurse practitioner. Please refer to the nurse practitioner's notes and impression documented as ascribed for information. Prognosis guarded.
[2016-10-05 12:18] LABS: Manual Review Performed; Target Cells Present
[2016-10-05 15:34] VITALS: BP 123/69; PULSE 92
--- NOTE | 2016-10-05 16:44 | DS ---
DATE OF ADMISSION: 09/30/2016 DATE OF DISCHARGE: FINAL DIAGNOSES: 1. Acute alcoholic hepatitis with hyperbilirubinemia. 2. Moderate ascites, possibly secondary to chronic liver disease secondary to alcoholic liver disease, status post paracentesis. 3. Anemia, macrocytic, secondary to alcohol. 4. Mild coagulopathy secondary to chronic liver disease. 5. Hyponatremia secondary to alcohol. 6. Increased liver function tests secondary to alcoholic hepatitis. 7. Increased alkaline phosphatase. 8. Hypoalbuminemia with mild to moderate protein-calorie malnutrition. 9. Hypertension. 10. Hypothyroidism. 11. History of fatty liver. 12. Anxiety, panic disorder history. 13. History of tetrahydrocannabinol. 14. Ongoing daily alcohol abuse. DISCHARGE DISPOSITION: The patient will be discharged in stable condition with guarded prognosis. Total time taken 35 minutes. HISTORY OF PRESENT ILLNESS: This 45-year-old gentleman with a past medical history of multiple medical problems was admitted with acute alcoholic hepatitis and acute hyperbilirubinemia. The patient developed moderate ascites and multiple other complications, also. The patient was treated symptomatically. The was 35 and the patient was started on prednisone. Patient improved significantly. No chest pain. No palpitation. No fever. On exam, alert and oriented x3. The bilirubin is improved at 15.5. The patient will be discharge in stable condition with guarded prognosis with the following advice and medications: 1. Diet is cardiac. 2. Activity limited until followup. 3. No EtOH. 4. Xanax 1 mg b.i.d. p.r.n. 5. Colace 100 b.i.d. Hold if the patient has diarrhea. 6. Folic acid 1 mg daily. 7. Lasix 40 mg p.o. daily. 8. Ativan 0.5 mg q.8 p.r.n. 9. Synthroid 88 mcg p.o. daily. 10. Zestril 20 mg p.o. daily. 11. Multivitamins 1 p.o. daily. 12. Protonix 40 mg daily. 13. Aldactone 100 mg p.o. daily. 14. Thiamine 100 mg p.o. daily. 15. Prednisone 40 mg daily to complete a 4-week course; 26 more days. 16. Follow-up labs CBC, CMP with Dr. Thompson. 17. Follow up with Dr. Santamaria as advised. Once again, the patient will be discharged in stable condition with guarded prognosis. [facility]
== END 2016-10-05 17:03 | disposition home or self-care (01) | DRG 432 ==
LOC: EC 15:55 → 4MS4W 17:54
PROVIDERS: ADMIT Hospitalist; ATTEND Hospitalist
DX: K70.11 Alcoholic hepatitis with ascites (principal); K85.90 Acute pancreatitis without necrosis or infection, unspecified; K70.31 Alcoholic cirrhosis of liver with ascites; D68.4 Acquired coagulation factor deficiency; E44.0 Moderate protein-calorie malnutrition; K76.6 Portal hypertension; E87.1 Hypo-osmolality and hyponatremia; D53.9 Nutritional anemia, unspecified; E03.9 Hypothyroidism, unspecified; F10.129 Alcohol abuse with intoxication, unspecified; F41.0 Panic disorder [episodic paroxysmal anxiety]; I10 Essential (primary) hypertension; K76.0 Fatty (change of) liver, not elsewhere classified; Z87.891 Personal history of nicotine dependence
CPT/HCPCS: 36415; 49083; 76705; 80053; 80074; 80320; 81003; 82042; 82140; 82150; 83690; 83735; 84157; 85025; 85610; 88108; 88305; 89050; 93005; 96361; 96372; 99284

== ENCOUNTER → 2016-10-10 | Outpatient (CLI) | payer OTHER ==
[2016-10-10 15:54] LABS: CHCM 32.8; HCT 35.2 % (39.0-53.0); HDW 1.86; HGB 11.3 gm/dL (13.0-17.5); MCH 39.4 pg (25.0-35.0); MCHC 32.1 g/dL (31.0-37.0); MCV 122.6 fL (80.0-100.0); Macrocytosis Marked; Mean Platelet Volume 7.8; RBC 2.87 m/uL (4.30-5.90); RDW 13.2 % (11.5-15.5); WBC 14.6 k/uL (3.8-10.6)
[2016-10-10 16:13] LABS: ALT 157 U/L (21-72); AST 210 U/L (17-59); Alkaline Phosphatase 270 U/L (38-126); Anion Gap 11 mmol/L; Blood Urea Nitrogen 11 mg/dL (9-20); Calcium 8.6 mg/dL (8.4-10.2); Carbon Dioxide 22 mmol/L (22-30); Chloride 101 mmol/L (98-107); Glucose 136 mg/dL (74-99); Non-African American GFR(MDRD) >60 (>60 ml/min/1.73 sqM); Potassium 4.2 mmol/L (3.5-5.1); Sodium 134 mmol/L (137-145); Total Bilirubin 12.3 mg/dL (0.2-1.3); Total Protein 7.6 g/dL (6.3-8.2)
== END | disposition home or self-care (01) ==
LOC: LABWHC1 15:35
PROVIDERS: ATTEND Nurse Practitioner
DX: K74.60 Unspecified cirrhosis of liver (principal)
CPT/HCPCS: 36415; 80053; 83690; 85027

== ENCOUNTER → 2016-10-18 | Outpatient (CLI) | payer OTHER ==
[2016-10-18 15:33] LABS: ALT 117 U/L (21-72); AST 138 U/L (17-59); Alkaline Phosphatase 278 U/L (38-126); Anion Gap 10 mmol/L; Blood Urea Nitrogen 10 mg/dL (9-20); Calcium 8.8 mg/dL (8.4-10.2); Carbon Dioxide 24 mmol/L (22-30); Chloride 97 mmol/L (98-107); Glucose 104 mg/dL (74-99); Non-African American GFR(MDRD) >60 (>60 ml/min/1.73 sqM); Potassium 4.2 mmol/L (3.5-5.1); Sodium 131 mmol/L (137-145); Total Bilirubin 12.7 mg/dL (0.2-1.3); Total Protein 7.5 g/dL (6.3-8.2)
[2016-10-18 15:38] LABS: Basophils # (A) 0.1 k/uL (0-0.2); Basophils % (A) 0 %; CH 39.2; CHCM 33.2; Eosinophils # (A) 0.3 k/uL (0-0.7); Eosinophils % (A) 2 %; HCT 33.5 % (39.0-53.0); HDW 1.69; Luc # (Auto) 0.14; Luc % (Auto) 1; Lymphocytes # (A) 1.2 k/uL (1.0-4.8); Lymphocytes % (A) 7 %; MCH 38.8 pg (25.0-35.0); MCHC 32.7 g/dL (31.0-37.0); MCV 118.5 fL (80.0-100.0); Macrocytosis Marked; Mean Platelet Volume 7.3; Monocytes # (A) 0.5 k/uL (0-1.0); Monocytes % (A) 3 %; Neutrophils # (A) 14.9 k/uL (1.3-7.7); Neutrophils % (A) 87 %; RBC 2.83 m/uL (4.30-5.90); RDW 12.7 % (11.5-15.5); WBC 17.1 k/uL (3.8-10.6); WBC (Perox) 17.65
[2016-10-18 15:52] LABS: Polychromasia Present
[2016-10-18 16:04] LABS: Hepatitis B Surface Ag Index 0.07
[2016-10-18 19:25] LABS: ANA w/Reflex to Titer NEGATIVE (NEGATIVE)
[2016-10-18 20:48] LABS: Iron 61 ug/dL (49-181)
[2016-10-18 20:57] LABS: % Iron Saturation 34.9 % (20-50); Total Iron Binding Capacity 175 ug/dL (261-462)
== END | disposition home or self-care (01) ==
LOC: LABWHC1 15:02
PROVIDERS: ATTEND Internal Medicine Gastroenterology
DX: K70.0 Alcoholic fatty liver (principal); R94.5 Abnormal results of liver function studies
CPT/HCPCS: 36415; 80053; 82103; 82105; 82390; 82728; 83516; 83540; 83550; 84165; 85025; 86038; 86704; 86705; 87340

== ENCOUNTER → 2016-10-27 | Outpatient (CLI) | payer OTHER ==
[2016-10-27 17:09] LABS: Basophils # (A) 0.1 k/uL (0-0.2); Basophils % (A) 1 %; CH 38.2; CHCM 32.6; Eosinophils # (A) 0.3 k/uL (0-0.7); Eosinophils % (A) 3 %; HCT 36.5 % (39.0-53.0); HGB 11.7 gm/dL (13.0-17.5); Luc % (Auto) 2; Lymphocytes # (A) 1.2 k/uL (1.0-4.8); Lymphocytes % (A) 10 %; MCH 37.5 pg (25.0-35.0); MCV 117.3 fL (80.0-100.0); Macrocytosis Marked; Monocytes # (A) 0.5 k/uL (0-1.0); Monocytes % (A) 4 %; Neutrophils # (A) 9.9 k/uL (1.3-7.7); Neutrophils % (A) 82 %; RBC 3.11 m/uL (4.30-5.90); RDW 12.7 % (11.5-15.5); WBC 12.2 k/uL (3.8-10.6); WBC (Perox) 12.68
[2016-10-27 17:17] LABS: INR 1.2 (<1.1); Partial Thromboplastin Time 30.3 sec (22.0-30.0); Prothrombin Time 12.4 sec (9.0-12.0)
[2016-10-27 17:21] LABS: ALT 72 U/L (21-72); AST 133 U/L (17-59); Alkaline Phosphatase 271 U/L (38-126); Anion Gap 10 mmol/L; Blood Urea Nitrogen 5 mg/dL (9-20); Calcium 8.9 mg/dL (8.4-10.2); Carbon Dioxide 25 mmol/L (22-30); Chloride 99 mmol/L (98-107); Glucose 103 mg/dL (74-99); Non-African American GFR(MDRD) >60 (>60 ml/min/1.73 sqM); Potassium 4.1 mmol/L (3.5-5.1); Sodium 134 mmol/L (137-145); Total Bilirubin 8.7 mg/dL (0.2-1.3); Total Protein 7.7 g/dL (6.3-8.2)
[2016-10-27 18:03] LABS: Large Platelets Present; Polychromasia Present
== END | disposition home or self-care (01) ==
LOC: LABWHC1 16:33
PROVIDERS: ATTEND Internal Medicine Gastroenterology
DX: F10.10 Alcohol abuse, uncomplicated (principal)
CPT/HCPCS: 36415; 80053; 85025; 85610; 85730

== ENCOUNTER → 2016-11-10 | Outpatient (CLI) | payer OTHER ==
[2016-11-10 17:39] LABS: Basophils # (A) 0.1 k/uL (0-0.2); Basophils % (A) 1 %; CH 37.1; CHCM 33.5; Eosinophils # (A) 0.3 k/uL (0-0.7); Eosinophils % (A) 3 %; HCT 38.8 % (39.0-53.0); HDW 2.42; HGB 12.8 gm/dL (13.0-17.5); Luc # (Auto) 0.12; Luc % (Auto) 1; Lymphocytes # (A) 1.4 k/uL (1.0-4.8); Lymphocytes % (A) 13 %; MCH 36.8 pg (25.0-35.0); MCHC 33.1 g/dL (31.0-37.0); Macrocytosis Marked; Monocytes # (A) 0.6 k/uL (0-1.0); Monocytes % (A) 6 %; Neutrophils # (A) 8.1 k/uL (1.3-7.7); Neutrophils % (A) 76 %; RBC 3.49 m/uL (4.30-5.90); RDW 12.6 % (11.5-15.5); WBC 10.6 k/uL (3.8-10.6); WBC (Perox) 10.67
[2016-11-10 17:40] LABS: MCV 111.2 fL (80.0-100.0)
[2016-11-10 17:47] LABS: INR 1.3 (<1.1); Prothrombin Time 12.4 sec (9.0-12.0)
[2016-11-10 17:48] LABS: ALT 42 U/L (21-72); AST 63 U/L (17-59); Alkaline Phosphatase 241 U/L (38-126); Anion Gap 11 mmol/L; Blood Urea Nitrogen 4 mg/dL (9-20); Calcium 9.5 mg/dL (8.4-10.2); Carbon Dioxide 26 mmol/L (22-30); Chloride 102 mmol/L (98-107); Glucose 108 mg/dL (74-99); Non-African American GFR(MDRD) >60 (>60 ml/min/1.73 sqM); Partial Thromboplastin Time 27.9 sec (22.0-30.0); Potassium 3.9 mmol/L (3.5-5.1); Sodium 139 mmol/L (137-145); Total Bilirubin 5.4 mg/dL (0.2-1.3); Total Protein 8.4 g/dL (6.3-8.2)
[2016-11-10 18:37] LABS: Polychromasia Present
== END | disposition home or self-care (01) ==
LOC: LABWHC1 17:24
PROVIDERS: ATTEND Internal Medicine Gastroenterology
DX: F10.10 Alcohol abuse, uncomplicated (principal)
CPT/HCPCS: 36415; 80053; 85025; 85610; 85730

== ENCOUNTER → 2016-12-01 | Outpatient (CLI) | payer OTHER ==
[2016-12-01 17:14] LABS: Basophils # (A) 0.1 k/uL (0-0.2); Basophils % (A) 1 %; CH 35.1; Eosinophils # (A) 0.6 k/uL (0-0.7); Eosinophils % (A) 7 %; HCT 40.2 % (39.0-53.0); HDW 2.83; HGB 14.1 gm/dL (13.0-17.5); Luc # (Auto) 0.19; Luc % (Auto) 2; Lymphocytes # (A) 1.4 k/uL (1.0-4.8); Lymphocytes % (A) 16 %; MCH 36.2 pg (25.0-35.0); Macrocytosis Slight; Mean Platelet Volume 7.7; Monocytes # (A) 0.4 k/uL (0-1.0); Monocytes % (A) 5 %; Neutrophils # (A) 5.9 k/uL (1.3-7.7); Neutrophils % (A) 69 %; RBC 3.88 m/uL (4.30-5.90); RDW 12.5 % (11.5-15.5); WBC 8.6 k/uL (3.8-10.6); WBC (Perox) 8.65
[2016-12-01 17:16] LABS: MCV 103.6 fL (80.0-100.0)
[2016-12-01 17:22] LABS: INR 1.2 (<1.1); Partial Thromboplastin Time 27.8 sec (22.0-30.0); Prothrombin Time 11.6 sec (9.0-12.0)
[2016-12-01 17:27] LABS: ALT 32 U/L (21-72); AST 61 U/L (17-59); Alkaline Phosphatase 150 U/L (38-126); Anion Gap 10 mmol/L; Blood Urea Nitrogen 8 mg/dL (9-20); Calcium 10.2 mg/dL (8.4-10.2); Carbon Dioxide 28 mmol/L (22-30); Chloride 103 mmol/L (98-107); Glucose 101 mg/dL (74-99); Non-African American GFR(MDRD) >60 (>60 ml/min/1.73 sqM); Potassium 3.9 mmol/L (3.5-5.1); Sodium 141 mmol/L (137-145); Total Protein 9.7 g/dL (6.3-8.2)
== END ==
LOC: LABWHC1 16:46
PROVIDERS: ATTEND Internal Medicine Gastroenterology
DX: K70.11 Alcoholic hepatitis with ascites (principal)
CPT/HCPCS: 36415; 80053; 85025; 85610; 85730

== ENCOUNTER → 2017-05-02 | Outpatient (CLI) | payer OTHER ==
[2017-05-02 17:11] LABS: Basophils # (A) 0.1 k/uL (0-0.2); Basophils % (A) 1 %; CH 33.2; CHCM 34.6; Eosinophils # (A) 0.4 k/uL (0-0.7); Eosinophils % (A) 5 %; HCT 47.1 % (39.0-53.0); HDW 2.57; HGB 15.9 gm/dL (13.0-17.5); Luc % (Auto) 1; Lymphocytes # (A) 1.8 k/uL (1.0-4.8); Lymphocytes % (A) 21 %; MCH 32.6 pg (25.0-35.0); MCHC 33.8 g/dL (31.0-37.0); MCV 96.4 fL (80.0-100.0); Mean Platelet Volume 7.3; Monocytes # (A) 0.4 k/uL (0-1.0); Monocytes % (A) 4 %; Neutrophils # (A) 5.8 k/uL (1.3-7.7); Neutrophils % (A) 68 %; RBC 4.88 m/uL (4.30-5.90); RDW 13.7 % (11.5-15.5); WBC 8.5 k/uL (3.8-10.6); WBC (Perox) 8.62
[2017-05-02 17:16] LABS: INR 1.1 (<1.2); Partial Thromboplastin Time 27.9 sec (22.0-30.0); Prothrombin Time 10.8 sec (9.0-12.0)
[2017-05-02 17:30] LABS: ALT 48 U/L (21-72); AST 35 U/L (17-59); Alkaline Phosphatase 110 U/L (38-126); Anion Gap 11 mmol/L; Blood Urea Nitrogen 13 mg/dL (9-20); Calcium 9.9 mg/dL (8.4-10.2); Carbon Dioxide 26 mmol/L (22-30); Chloride 104 mmol/L (98-107); Glucose 76 mg/dL (74-99); Non-African American GFR(MDRD) >60 (>60 ml/min/1.73 sqM); Potassium 4.2 mmol/L (3.5-5.1); Sodium 141 mmol/L (137-145); Total Bilirubin 1.2 mg/dL (0.2-1.3); Total Protein 8.3 g/dL (6.3-8.2)
== END | disposition home or self-care (01) ==
LOC: LABWHC1 16:44
PROVIDERS: ATTEND Internal Medicine Gastroenterology
DX: K70.11 Alcoholic hepatitis with ascites (principal)
CPT/HCPCS: 36415; 80053; 85025; 85610; 85730

== ENCOUNTER → 2017-11-01 | Outpatient (CLI) | payer OTHER ==
[2017-11-01 17:45] LABS: Partial Thromboplastin Time 25.9 sec (22.0-30.0); Prothrombin Time 10.1 sec (9.0-12.0)
[2017-11-01 17:47] LABS: Basophils # (A) 0.1 k/uL (0-0.2); Basophils % (A) 1 %; Eosinophils # (A) 0.5 k/uL (0-0.7); Eosinophils % (A) 5 %; HCT 49.5 % (39.0-53.0); HGB 16.5 gm/dL (13.0-17.5); Lymphocytes # (A) 2.2 k/uL (1.0-4.8); Lymphocytes % (A) 22 %; MCH 31.6 pg (25.0-35.0); MCHC 33.2 g/dL (31.0-37.0); MCV 95.1 fL (80.0-100.0); Mean Platelet Volume 6.8; Monocytes # (A) 0.4 k/uL (0-1.0); Monocytes % (A) 4 %; Neutrophils # (A) 6.9 k/uL (1.3-7.7); Neutrophils % (A) 68 %; Platelet Count 220 k/uL (150-450); RBC 5.21 m/uL (4.30-5.90); RDW 12.6 % (11.5-15.5); WBC 10.3 k/uL (3.8-10.6)
[2017-11-01 17:55] LABS: ALT 34 U/L (21-72); AST 29 U/L (17-59); Albumin 4.5 g/dL (3.5-5.0); Alkaline Phosphatase 101 U/L (38-126); Anion Gap 12 mmol/L; Blood Urea Nitrogen 13 mg/dL (9-20); Carbon Dioxide 30 mmol/L (22-30); Chloride 100 mmol/L (98-107); Glucose 99 mg/dL (74-99); Potassium 4.2 mmol/L (3.5-5.1); Sodium 142 mmol/L (137-145); Total Bilirubin 0.9 mg/dL (0.2-1.3); Total Protein 8.1 g/dL (6.3-8.2)
== END | disposition home or self-care (01) ==
LOC: LABWHC1 17:17
PROVIDERS: ATTEND Internal Medicine Gastroenterology
DX: K70.11 Alcoholic hepatitis with ascites (principal)
CPT/HCPCS: 36415; 80053; 85025; 85610; 85730

== ENCOUNTER 2018-10-30 15:26 | Emergency (ER) | payer OTHER ==
[2018-10-30 15:39] VITALS: BP 131/84; RESP 16; TEMP 98.3
--- NOTE | 2018-10-30 16:41 | ED ---
General Adult HPI - General Chief complaint: Fall Stated complaint: slip & fall/ankle pain Source: patient, RN notes reviewed Mode of arrival: ambulatory Limitations: no limitations - History of Present Illness Initial comments: Patient is a 48-year-old male who presents to the emergency department with complaint of right foot, ankle, and knee pain that started last night after he slipped and fell on the ice. Denies head injury or loss of consciousness. Denies any additional injury. Patient states that he has Vicodin at home. Patient denies any recent fever, chills, shortness of breath, chest pain, back pain, abdominal pain, nausea or vomiting, numbness or tingling, headaches or visual changes, or any other complaints. - Related Data Home Medications Medication Instructions Recorded Confirmed ALPRAZolam 1 mg PO BID PRN 10/03/14 09/30/16 Levothyroxine Sodium [Synthroid] 88 mcg PO DAILY 10/03/14 10/01/16 Lisinopril [Zestril] 20 mg PO DAILY 09/30/16 09/30/16 Previous Rx's Medication Instructions Recorded Docusate [Colace] 100 mg PO BID #60 cap 10/05/16 Folic Acid 1 mg PO DAILY@1200 #30 tab 10/05/16 Furosemide [Lasix] 40 mg PO DAILY #30 tab 10/05/16 LORazepam [Ativan] 0.5 mg PO Q8H #20 tab 10/05/16 Multivitamins, Thera [Multivitamin 1 each PO DAILY@1200 #30 tab 10/05/16 (formulary)] Pantoprazole [Protonix] 40 mg PO DAILY #30 tablet 10/05/16 Spironolactone [Aldactone] 100 mg PO DAILY #120 tab 10/05/16 Thiamine [Vitamin B-1] 100 mg PO DAILY #30 tab 10/05/16 predniSONE 40 mg PO DAILY #28 tab 10/05/16 Ibuprofen [Motrin] 600 mg PO Q6HR PRN #28 10/30/18 Allergies Allergy/AdvReac Type Severity Reaction Status Date / Time No Known Allergies Allergy Verified 10/30/18 15:39 Review of Systems ROS Statement: Those systems with pertinent positive or pertinent negative responses have been documented in the HPI. ROS Other: All systems not noted in ROS Statement are negative. Past Medical History Past Medical History: Hypertension, Thyroid Disorder Additional Past Medical History / Comment(s): fatty liver disease History of Any Multi-Drug Resistant Organisms: None Reported Past Surgical History: No Surgical Hx Reported Additional Past Anesthesia/Blood Transfusion Reaction / Comment(s): has never had anesthesia or blood transfusion Past Psychological History: Anxiety, Panic Disorder Smoking Status: Never smoker Past Alcohol Use History: None Reported Past Drug Use History: Marijuana - Past Family History Mother Family Medical History: Cancer, CVA/TIA Additional Family Medical History / Comment(s): kidney cancer Father Family Medical History: Cancer, CVA/TIA General Exam Limitations: no limitations General appearance: alert, in no apparent distress Head exam: Present: atraumatic, normocephalic Eye exam: Present: normal appearance Respiratory exam: Present: normal lung sounds bilaterally. Absent: wheezes, rales, rhonchi Cardiovascular Exam: Present: normal rhythm, normal heart sounds Extremities exam: Present: full ROM, tenderness (Right ankle, foot, knee.), normal capillary refill, joint swelling (Right ankle.), other (DP pulses palpable and strong.) Neurological exam: Present: alert, oriented X3 Psychiatric exam: Present: normal affect, normal mood Skin exam: Present: warm, dry Course Vital Signs 10/30/18 10/30/18 15:35 18:04 Temperature 98.3 F Pulse Rate 110 H 95 Respiratory 16 Rate Blood Pressure 131/84 O2 Sat by Pulse 97 Oximetry Procedures - Orthopedic Splinting/Casting Injury #1 Side: right Lower Extremity Injury Location: ankle Lower Extremity Immobilizer: stirrup splint Additional Comments: Neurovascularly intact following procedure. Medical Decision Making - Medical Decision Making X-ray of the right foot and ankle reveals fracture of the distal fibula. X-ray of the right knee is negative. Splint applied. Patient given a prescription for crutches and Motrin. Case discussed in detail with attending physician Dr. Currie. Disposition Clinical Impression: Fibula fracture Disposition: HOME SELF-CARE Condition: Good Instructions (If sedation given, give patient instructions): Ankle Fracture (ED ) Additional Instructions: Follow-up with your PCP in 1-2 days. Follow-up with orthopedics in 1-2 days. Do not put weight on your right foot. Return to the emergency department if your symptoms worsen or other concerns. Prescriptions: Ibuprofen [Motrin] 600 mg PO Q6HR PRN #28 PRN Reason: Pain Is patient prescribed a controlled substance at d/c from ED?: No Referrals: Luz Marina Thompson MD [Primary Care Provider] - 1-2 days Decision Time: 17:49
[2018-10-30] MEDS ORDERED: ACETAMINOPHEN TAB 325 MG TAB PO STA (16:45)
--- NOTE | 2018-10-30 17:08 | XR ---
EXAMINATION TYPE: XR ankle complete RT DATE OF EXAM: 10/30/2018 COMPARISON: NONE HISTORY: Pain after a fall TECHNIQUE: 3 views FINDINGS: There is nondisplaced spiral fracture distal shaft of the tibia. There is lateral soft tiss ue swelling. Ankle mortise is not widened. There are plantar and Achilles calcaneal spurs. IMPRESSION: Acute fracture distal fibula.
--- NOTE | 2018-10-30 17:14 | XR ---
EXAMINATION TYPE: XR foot complete RT DATE OF EXAM: 10/30/2018 COMPARISON: NONE HISTORY: Pain after a fall TECHNIQUE: 3 views FINDINGS: Metatarsals are intact. There is nondisplaced spiral fracture distal shaft of the fibula. T here are moderate plantar and Achilles calcaneal spurs. The tarsal bones appear intact. IMPRESSION: Acute fracture distal fibula. No foot fracture seen.
--- NOTE | 2018-10-30 17:16 | XR ---
EXAMINATION TYPE: XR knee complete RT DATE OF EXAM: 10/30/2018 COMPARISON: NONE HISTORY: Knee pain TECHNIQUE: 3 views FINDINGS: I see no fracture nor dislocation. There is spurring on the superior patella. There is no s ign of joint effusion. IMPRESSION: Spurring on the patella. No fracture seen.
[2018-10-30 18:04] VITALS: PULSE 95
== END 2018-10-30 18:03 | disposition home or self-care (01) ==
LOC: EC 15:26
DX: S82.831A Other fracture of upper and lower end of right fibula, initial encounter for closed fracture (principal); M25.561 Pain in right knee; I10 Essential (primary) hypertension; E07.9 Disorder of thyroid, unspecified; Z79.890 Hormone replacement therapy; Z79.899 Other long term (current) drug therapy; W00.0XXA Fall on same level due to ice and snow, initial encounter
CPT/HCPCS: 29505; 99283

== ENCOUNTER 2020-02-02 16:24 | Emergency (ER) | payer OTHER ==
[2020-02-02 16:34] VITALS: BP 135/80; PULSE 73; RESP 20; TEMP 98.5
[2020-02-02] MEDS ORDERED: AMOXIC-POT CLAV 875MG STARTER PACK 2 TAB BTL PO STA (17:19)
--- NOTE | 2020-02-02 17:22 | ED ---
ENT HPI - General Source: patient Mode of arrival: ambulatory Limitations: no limitations <Osmin Phelan - Last Filed: 02/02/20 19:48> <Arcelia Mata - Last Filed: 02/04/20 12:55> - General Chief complaint: Dental/Oral Stated complaint: dental abscess Time Seen by Provider: 02/02/20 16:41 - History of Present Illness Initial comments: Patient is a 49-year-old male with history of poor dentition presenting to emergency Department with a chief complaint of dental infection. Patient states over the last few days he developed infection on tooth #19. States he previously had a dental filling. States he contacted his dentist who advised him to come to the ED for antibiotics. Patient states he had an abscess on that tooth which "popped" early this morning. Patient states after that the pain has resolved. Patient reports minimal pain at this time. Patient denies any facial swelling. (Osmin Phelan) - Related Data Home Medications Medication Instructions Recorded Confirmed ALPRAZolam 1 mg PO BID PRN 10/03/14 09/30/16 Levothyroxine Sodium [Synthroid] 88 mcg PO DAILY 10/03/14 10/01/16 Lisinopril [Zestril] 20 mg PO DAILY 09/30/16 09/30/16 Previous Rx's Medication Instructions Recorded Docusate [Colace] 100 mg PO BID #60 cap 10/05/16 Folic Acid 1 mg PO DAILY@1200 #30 tab 10/05/16 Furosemide [Lasix] 40 mg PO DAILY #30 tab 10/05/16 LORazepam [Ativan] 0.5 mg PO Q8H #20 tab 10/05/16 Multivitamins, Thera [Multivitamin 1 each PO DAILY@1200 #30 tab 10/05/16 (formulary)] Pantoprazole [Protonix] 40 mg PO DAILY #30 tablet 10/05/16 Spironolactone [Aldactone] 100 mg PO DAILY #120 tab 10/05/16 Thiamine [Vitamin B-1] 100 mg PO DAILY #30 tab 10/05/16 predniSONE [Deltasone] 40 mg PO DAILY #28 tab 10/05/16 Ibuprofen [Motrin] 600 mg PO Q6HR PRN #28 10/30/18 Amoxicillin/Potassium Clav 1 tab PO Q12HR #20 tab 02/02/20 [Augmentin 875-125 Tablet] Allergies Allergy/AdvReac Type Severity Reaction Status Date / Time No Known Allergies Allergy Verified 02/02/20 16:34 Review of Systems ROS Other: All systems not noted in ROS Statement are negative. <Osmin Phelan - Last Filed: 02/02/20 19:48> ROS Other: All systems not noted in ROS Statement are negative. <Arcelia Mata - Last Filed: 02/04/20 12:55> ROS Statement: Those systems with pertinent positive or pertinent negative responses have been documented in the HPI. Past Medical History Past Medical History: Hypertension, Thyroid Disorder Additional Past Medical History / Comment(s): fatty liver disease History of Any Multi-Drug Resistant Organisms: None Reported Past Surgical History: No Surgical Hx Reported Additional Past Anesthesia/Blood Transfusion Reaction / Comment(s): has never had anesthesia or blood transfusion Past Psychological History: Anxiety, Panic Disorder Smoking Status: Never smoker Past Alcohol Use History: None Reported Past Drug Use History: Marijuana - Past Family History Mother Family Medical History: Cancer, CVA/TIA Additional Family Medical History / Comment(s): kidney cancer Father Family Medical History: Cancer, CVA/TIA <Osmin Phelan - Last Filed: 02/02/20 19:48> General Exam Limitations: no limitations General appearance: alert, in no apparent distress Head exam: Present: atraumatic, normocephalic, normal inspection Eye exam: Present: normal appearance, PERRL, EOMI Pupils: Present: normal accommodation ENT exam: Present: normal exam, normal oropharynx (Periapical abscess that has self drained. No other oral lesions noted. No signs of fluids angina. Minimal pain.), mucous membranes moist, TM's normal bilaterally, normal external ear exam Neck exam: Present: normal inspection, full ROM Respiratory exam: Present: normal lung sounds bilaterally Cardiovascular Exam: Present: regular rate, normal rhythm, normal heart sounds Extremities exam: Present: normal inspection, full ROM Back exam: Present: normal inspection, full ROM Neurological exam: Present: alert, oriented X3 Psychiatric exam: Present: normal affect, normal mood Skin exam: Present: warm, dry, intact, normal color <Osmin Phelan - Last Filed: 02/02/20 19:48> Course Vital Signs 02/02/20 02/02/20 16:31 17:41 Temperature 98.5 F 98.5 F Pulse Rate 73 73 Respiratory 20 20 Rate Blood Pressure 135/80 135/80 O2 Sat by Pulse 99 99 Oximetry Medical Decision Making <Osmin Phelan - Last Filed: 02/02/20 19:48> <Arcelia Mata - Last Filed: 02/04/20 12:55> - Medical Decision Making Patient is a 49-year-old male presenting to the emergency department with a chief complaint of dental pain. Patient does have history of poor dentition. On physical examination patient has minimal pain with a periapical abscess that has drained prior to arrival. Patient given an enema to start taking the ED and discharged with a 10 day course of Augmentin. Patient is going to follow-up with his dentist within a week. Return parameters thoroughly discussed with patient is understanding and agreeable. Advised to alternate between Tylenol and Motrin for pain control. Case discussed with physician. (Osmin Phelan) I was available for consultation in the emergency department. The history and physical exam were done by the midlevel provider. I was consulted for this patients care. I reviewed the case with the midlevel provider and based on their presentation of the patient, I agree with the assessment, medical decision making and plan of care as documented. No drooling, trisumus, hoarseness or stridor. No tonsillar or peritonsilar abscess. No signs of whit angina. Chart was dictated using [employer] dictation software. Attempts were made to correct any dictation errors however some typographical errors may persist. Patient was seen during a national state of emergency due to the Covid-19 pandemic. (Arcelia Mata) Disposition Is patient prescribed a controlled substance at d/c from ED?: No Time of Disposition: 17:22 <Osmin Phelan - Last Filed: 02/02/20 19:48> <Arcelia Mata - Last Filed: 02/04/20 12:55> Clinical Impression: Dental abscess, Dental infection Disposition: HOME SELF-CARE Condition: Stable Instructions (If sedation given, give patient instructions): Dental Abscess (ED) Additional Instructions: Take prescribed medication as directed. Use multiple salt water rinses per day. Alternate between Tylenol and Motrin for pain control. Return to emergency department if symptoms worsen. Prescriptions: Amoxicillin/Potassium Clav [Augmentin 875-125 Tablet] 1 tab PO Q12HR #20 tab Referrals: Luz Marina Thompson MD [Primary Care Provider] - 1-2 days
== END 2020-02-02 17:51 | disposition home or self-care (01) ==
LOC: EC 16:24
DX: K04.7 Periapical abscess without sinus (principal); I10 Essential (primary) hypertension; F41.0 Panic disorder [episodic paroxysmal anxiety]; E07.9 Disorder of thyroid, unspecified; Z79.890 Hormone replacement therapy; Z79.899 Other long term (current) drug therapy
CPT/HCPCS: 99282

== ENCOUNTER 2020-07-20 22:17 | Emergency (ER) | payer OTHER ==
[2020-07-20 22:20] VITALS: BP 158/83; PULSE 86; RESP 18; TEMP 98.4
[2020-07-20] MEDS ORDERED: PENICILLIN V POTASSIUM 250 MG TAB PO STA (23:05)
--- NOTE | 2020-07-20 23:10 | ED ---
ENT HPI - General Chief complaint: Dental/Oral Stated complaint: Dental Pain Time Seen by Provider: 07/20/20 22:25 Source: patient Mode of arrival: ambulatory Limitations: no limitations - History of Present Illness Initial comments: Patient is a 41-year-old male presenting to the emergency Department with complaints of left-sided dental pain started 2 days ago. Patient states he has a history of dental abscesses, the last one is been over a year now. Patient states he noticed a mildly painful bump on his left upper gumline, he did squeeze the area and had some drainage from it. He states he will call his dentist in the morning but he feels like he needs to start antibiotics. He states his pain is minimal at this time. Denies any fever, chills, vomiting. He has no further complaints at this time. Upon arrival to the ER, his vital signs are stable. - Related Data Home Medications Medication Instructions Recorded Confirmed ALPRAZolam 1 mg PO BID PRN 10/03/14 09/30/16 Levothyroxine Sodium [Synthroid] 88 mcg PO DAILY 10/03/14 10/01/16 lisinopriL [Zestril] 20 mg PO DAILY 09/30/16 09/30/16 Previous Rx's Medication Instructions Recorded Docusate [Colace] 100 mg PO BID #60 cap 10/05/16 Folic Acid 1 mg PO DAILY@1200 #30 tab 10/05/16 Furosemide [Lasix] 40 mg PO DAILY #30 tab 10/05/16 LORazepam [Ativan] 0.5 mg PO Q8H #20 tab 10/05/16 Multivitamins, Thera [Multivitamin 1 each PO DAILY@1200 #30 tab 10/05/16 (formulary)] Pantoprazole [Protonix] 40 mg PO DAILY #30 tablet. 10/05/16 Spironolactone [Aldactone] 100 mg PO DAILY #120 tab 10/05/16 Thiamine [Vitamin B-1] 100 mg PO DAILY #30 tab 10/05/16 predniSONE [Deltasone] 40 mg PO DAILY #28 tab 10/05/16 Ibuprofen [Motrin] 600 mg PO Q6HR PRN #28 10/30/18 Amoxicillin/Potassium Clav 1 tab PO Q12HR #20 tab 02/02/20 [Augmentin 875-125 Tablet] Penicillin V Potassium [Pen Vee K] 500 mg PO QID 10 Days #40 tablet 07/20/20 Allergies Allergy/AdvReac Type Severity Reaction Status Date / Time No Known Allergies Allergy Verified 07/20/20 22:20 Review of Systems ROS Statement: Those systems with pertinent positive or pertinent negative responses have been documented in the HPI. ROS Other: All systems not noted in ROS Statement are negative. Past Medical History Past Medical History: Hypertension, Thyroid Disorder Additional Past Medical History / Comment(s): fatty liver disease History of Any Multi-Drug Resistant Organisms: None Reported Past Surgical History: No Surgical Hx Reported Additional Past Anesthesia/Blood Transfusion Reaction / Comment(s): has never had anesthesia or blood transfusion Past Psychological History: Anxiety, Panic Disorder Smoking Status: Light tobacco smoker Past Alcohol Use History: None Reported Past Drug Use History: Marijuana - Past Family History Mother Family Medical History: Cancer, CVA/TIA Additional Family Medical History / Comment(s): kidney cancer Father Family Medical History: Cancer, CVA/TIA General Exam - General Exam Comments Initial Comments: GENERAL: Patient is well-developed and well-nourished. Patient is nontoxic and in no acute distress. HEAD: Atraumatic, normocephalic. EYES: Pupils equal round and reactive to light, extraocular movements intact, sclera anicteric, conjunctiva are normal. Eyelids were unremarkable. ENT: TMs normal, nares patent, oropharynx clear without exudates. Moist mucous membranes. Patient has a dental abscess on the left upper gumline, this is actively draining. Only mild pain with palpation. NECK: Normal range of motion, supple without lymphadenopathy or JVD. LUNGS: Unlabored respirations. Breath sounds clear to auscultation bilaterally and equal. No wheezes rales or rhonchi. HEART: Regular rate and rhythm without murmurs, rubs or gallops. ABDOMEN: Soft, nontender, normoactive bowel sounds. No guarding, no rebound. No masses appreciated. : Deferred MUSCULOSKELETAL: Normal extremities with adequate strength and normal range of motion, no pitting or edema. No clubbing or cyanosis. NEUROLOGICAL: Patient is alert and oriented x 3. Motor and sensory are also intact. Normal speech, normal gait. PSYCH: Normal mood, normal affect. SKIN: Warm, Dry, normal turgor, no rashes or lesions noted. Limitations: no limitations Course Vital Signs 07/20/20 22:19 Temperature 98.4 F Pulse Rate 86 Respiratory 18 Rate Blood Pressure 158/83 O2 Sat by Pulse 98 Oximetry Medical Decision Making - Medical Decision Making Patient is a 49-year-old male here for dental abscess, this abscess is already draining.. His vitals are stable, afebrile. I will start patient on penicillin VK, first dose given in the ER. Patient is agreement with this plan of care. He states he'll call his dentist in the morning. Return parameters were discussed with the patient he verbalizes understanding. Disposition Clinical Impression: Dental abscess Disposition: HOME SELF-CARE Condition: Stable Instructions (If sedation given, give patient instructions): Dental Abscess (ED) Additional Instructions: Please return to the Emergency Department if symptoms worsen or any other concerns. Take antibiotic as prescribed. Follow-up with Dentist. Prescriptions: Penicillin V Potassium [Pen Vee K] 500 mg PO QID 10 Days #40 tablet Is patient prescribed a controlled substance at d/c from ED?: No Referrals: Luz Marina Thompson MD [Primary Care Provider] - 1-2 days
== END 2020-07-20 23:20 | disposition home or self-care (01) ==
LOC: EC 22:17
DX: K04.7 Periapical abscess without sinus (principal); I10 Essential (primary) hypertension; E07.9 Disorder of thyroid, unspecified; F17.200 Nicotine dependence, unspecified, uncomplicated; Z79.890 Hormone replacement therapy; Z79.899 Other long term (current) drug therapy
CPT/HCPCS: 99282

== ENCOUNTER → 2021-04-06 | Outpatient (CLI) | payer OTHER ==
[2021-04-06 17:29] LABS: Basophils # (A) 0.1 k/uL (0-0.2); Basophils % (A) 1 %; Eosinophils # (A) 0.2 k/uL (0-0.7); Eosinophils % (A) 3 %; HCT 47.3 % (39.0-53.0); HGB 16.2 gm/dL (13.0-17.5); Lymphocytes # (A) 1.6 k/uL (1.0-4.8); Lymphocytes % (A) 21 %; MCH 31.8 pg (25.0-35.0); MCHC 34.2 g/dL (31.0-37.0); MCV 92.9 fL (80.0-100.0); Mean Platelet Volume 7.4; Monocytes # (A) 0.3 k/uL (0-1.0); Monocytes % (A) 4 %; Neutrophils # (A) 5.4 k/uL (1.3-7.7); Neutrophils % (A) 71 %; Platelet Count 190 k/uL (150-450); RDW 12.4 % (11.5-15.5); WBC 7.7 k/uL (3.8-10.6)
[2021-04-06 17:35] LABS: Albumin 4.2 g/dL (3.5-5.0); Bilirubin, Delta 0.1 mg/dL (0.0-0.2); Bilirubin,Unconjugated 0.3 mg/dL (0.0-1.1); INR 0.9 (<1.2); Prothrombin Time 10.2 sec (9.0-12.0); Total Bilirubin 0.4 mg/dL (0.2-1.3); Total Protein 7.2 g/dL (6.3-8.2)
--- NOTE | 2021-04-07 12:04 | US ---
EXAMINATION TYPE: US liver DATE OF EXAM: 04/06/[address] 04/13/2014 CLINICAL HISTORY: K70.10 ALCOHOLIC HEPATITIS WITHOUT ASCITES. EXAM MEASUREMENTS: Liver Length: 17 cm Gallbladder Wall: 0.3 cm at the upper limits of normal CBD: 0.5 cm Right Kidney: 12.3 x 6.2 x 5.3 cm Pancreas: not well visualized due to midline bowel gas. Liver: wnl Gallbladder: No stones seen Evidence for sonographic Boykin's sign: No CBD: wnl Right Kidney: No hydronephrosis or masses seen IMPRESSION: 1. The liver parenchyma is not well evaluated on this study due to overlying shadowing. A CT or MRI u sing liver protocol may be helpful for further evaluation. 2. No gallstones are seen. The gallbladder wall is at the upper limits of normal in thickness. No per icholecystic fluid. 3. No right renal calculi or hydronephrosis. 4. The pancreas is not well-visualized due to overlying bowel gas. 5. No free fluid.
== END | disposition home or self-care (01) ==
LOC: RADUSWWP 16:12
PROVIDERS: ATTEND Internal Medicine Gastroenterology
DX: K70.10 Alcoholic hepatitis without ascites (principal)
CPT/HCPCS: 36415; 76705; 80076; 82105; 85025; 85610